=== PATIENT | female | born 1940 | race Caucasian/White ===

== ENCOUNTER 2016-10-01 14:45 | Emergency (ER) | payer MEDICARE, BC ==
[2016-10-01 15:11] VITALS: BP 126/61; PULSE 66; RESP 16; TEMP 97.6
[2016-10-01] MEDS ORDERED: HYDROcodone/APAP 7.5-325MG 1 EACH TAB PO ONE (16:02)
--- NOTE | 2016-10-01 16:17 | XR ---
EXAMINATION TYPE: XR wrist limited LT DATE OF EXAM: 10/01/2016 CLINICAL HISTORY: pain TECHNIQUE: Frontal, lateral images of the left wrist are obtained. COMPARISON: None. FINDINGS: Impacted and angulated distal radial fracture is identified. No definite intra-articular ex tension is seen. There is also fracture involving the diametaphyseal region of the ulna as well as th e ulnar styloid process. No additional fractures are seen with certainty. Soft tissue deformity and e stacey identified. IMPRESSION: Distal radial and ulnar fractures.
--- NOTE | 2016-10-01 16:27 | ED ---
Fall HPI - General Chief Complaint: Fall Stated Complaint: Fall Time Seen by Provider: 10/01/16 16:00 Source: patient Mode of arrival: ambulatory - Related Data Previous Rx's Medication Instructions Recorded Hydrocodone/Acetaminophen [[place] 1 tab PO Q6HR PRN #20 tab 10/01/16 5-325] Review of Systems ROS Statement: Those systems with pertinent positive or pertinent negative responses have been documented in the HPI. ROS Other: All systems not noted in ROS Statement are negative. Past Medical History Past Medical History: Seizure Disorder History of Any Multi-Drug Resistant Organisms: None Reported Additional Past Surgical History / Comment(s): endarctectomy Smoking Status: Current every day smoker Past Alcohol Use History: Occasional Past Drug Use History: None Reported General Exam Limitations: no limitations Course Vital Signs 10/01/16 15:07 Temperature 97.6 F Pulse Rate 66 Respiratory 16 Rate Blood Pressure 126/61 O2 Sat by Pulse 97 Oximetry Disposition Clinical Impression: Fall, Wrist fracture, left Disposition: HOME SELF-CARE Condition: Stable Instructions: Wrist Fracture in Adults (ED) Additional Instructions: Please return to the Emergency Department if symptoms worsen or any other concerns. Prescriptions: Hydrocodone/Acetaminophen [[place] 5-325] 1 tab PO Q6HR PRN #20 tab PRN Reason: Pain Referrals: Mika Phillips DO [Primary Care Provider] - 1-2 days Leeroy Patel MD [STAFF PHYSICIAN] - 1-2 days Time of Disposition: 16:27
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
== END 2016-10-01 16:39 | disposition home or self-care (01) ==
LOC: EC 14:45
DX: S52.502A Unspecified fracture of the lower end of left radius, initial encounter for closed fracture (principal); S52.202A Unspecified fracture of shaft of left ulna, initial encounter for closed fracture; F17.200 Nicotine dependence, unspecified, uncomplicated; W19.XXXA Unspecified fall, initial encounter; Y93.89 Activity, other specified
CPT/HCPCS: 29125; 99284

== ENCOUNTER → 2017-12-15 | Outpatient (CLI) | payer MEDICARE ==
--- NOTE | 2017-12-15 15:02 | CT ---
EXAMINATION TYPE: CT chest w con DATE OF EXAM: 12/15/2017 COMPARISON: HISTORY: Pulmonary fibrosis CT DLP: 403 mGycm Automated exposure control for dose reduction was used. CONTRAST: CT scan of the chest is performed with IV Contrast, patient injected with 100 ml mL of Isovue 300. FINDINGS: LUNGS: The lungs are grossly clear, there is no concerning parenchymal mass or nodule identified. T here is no pleural effusion or pneumothorax seen. The tracheobronchial tree is patent. MEDIASTINUM: There are no greater than 1 cm hilar or mediastinal lymph nodes. No pericardial effusi on is seen. Atheromatous and ectatic change of the thoracic aorta without aneurysm at this time. The heart is not enlarged. UPPER ABDOMEN: Moderate fixed hiatal hernia. Debris within the gallbladder lumen with gallbladder wal l thickening. OTHER: No additional significant abnormality is seen. IMPRESSION: 1. No evidence of pulmonary fibrosis. 2. Moderate fixed hiatal hernia. 3.Debris within the gallbladder lumen with gallbladder wall thickening.
== END | disposition home or self-care (01) ==
LOC: RADCTMAIN 12:25
PROVIDERS: ATTEND Internal Medicine Rheumatology
DX: J84.10 Pulmonary fibrosis, unspecified (principal); Z87.891 Personal history of nicotine dependence
CPT/HCPCS: 82565; 84520; 71260; 36415; Q9967

== ENCOUNTER 2018-08-27 14:15 | Emergency (ER) | payer MEDICARE ==
[2018-08-27 14:28] VITALS: RESP 18
--- NOTE | 2018-08-27 14:55 | ED ---
Fall HPI - General Chief Complaint: Fall Stated Complaint: rt shoulder pain Time Seen by Provider: 08/27/18 14:33 Source: patient Mode of arrival: wheelchair - History of Present Illness Initial Comments: This is a 70-year-old female with known seizure history. Patient woke up with injury to right shoulder pain, bruising of her face. Patient unsure of injury Y happen. She does not remember having seizure but again does have history of seizures. No blood thinners. MD Complaint: fall, other (seizure) -: unknown Fall From: out of bed When Fall Occurred: unsure Fall Witnessed: no Place Fall Occurred: home Loss of Consciousness: unsure Prolonged Down Time?: unclear Symptoms Prior to Fall: none Location: head Location - Extremities: Right: Shoulder Severity: moderate Severity scale (1-10): 5 Quality: aching Context: history of frequent falls, seizure Associated Symptoms: headache - Related Data Home Medications Medication Instructions Recorded Confirmed Aspirin EC [Ecotrin Low Dose] 81 mg PO HS 08/27/18 08/27/18 Atorvastatin [Lipitor] 80 mg PO HS 08/27/18 08/27/18 Cholecalciferol [Vitamin D3] 1,000 unit PO DAILY 08/27/18 08/27/18 Citalopram Hydrobromide [CeleXA] 20 mg PO DAILY 08/27/18 08/27/18 Folic Acid 0.8 mg PO DAILY 08/27/18 08/27/18 Furosemide [Lasix] 20 mg PO DAILY 08/27/18 08/27/18 Levothyroxine Sodium [Synthroid] 125 mcg PO DAILY 08/27/18 08/27/18 Lisinopril [Zestril] 12.5 mg PO [place] 08/27/18 08/27/18 Methotrexate Sodium [Methotrexate] 2.5 mg PO DAILY 08/27/18 08/27/18 Omeprazole 20 mg PO DAILY 08/27/18 08/27/18 levETIRAcetam [Keppra] 750 mg PO BID 08/27/18 08/27/18 Allergies Allergy/AdvReac Type Severity Reaction Status Date / Time cephalexin [From Keflex] Allergy Itching Verified 08/27/18 15:49 Review of Systems ROS Statement: Those systems with pertinent positive or pertinent negative responses have been documented in the HPI. ROS Other: All systems not noted in ROS Statement are negative. Past Medical History Past Medical History: Rheumatoid Arthritis (RA), Seizure Disorder History of Any Multi-Drug Resistant Organisms: None Reported Additional Past Surgical History / Comment(s): endarctectomy Past Psychological History: Depression Smoking Status: Current every day smoker Past Alcohol Use History: Occasional Past Drug Use History: None Reported General Exam Limitations: no limitations General appearance: alert, in no apparent distress Head exam: Present: atraumatic, normocephalic, normal inspection Eye exam: Present: normal appearance, PERRL, EOMI. Absent: scleral icterus, conjunctival injection, periorbital swelling ENT exam: Present: normal exam, mucous membranes moist Neck exam: Present: normal inspection. Absent: tenderness, meningismus, lymphadenopathy Respiratory exam: Present: normal lung sounds bilaterally. Absent: respiratory distress, wheezes, rales, rhonchi, stridor Cardiovascular Exam: Present: regular rate, normal rhythm, normal heart sounds. Absent: systolic murmur, diastolic murmur, rubs, gallop, clicks GI/Abdominal exam: Present: soft, normal bowel sounds. Absent: distended, tenderness, guarding, rebound, rigid Extremities exam: Present: normal inspection, full ROM, normal capillary refill. Absent: tenderness, pedal edema, joint swelling, calf tenderness Back exam: Present: normal inspection Neurological exam: Present: alert, oriented X3, CN II-XII intact Psychiatric exam: Present: normal affect, normal mood Skin exam: Present: warm, dry, intact, normal color. Absent: rash Course Vital Signs 08/27/18 08/27/18 08/27/18 14:24 16:36 17:06 Temperature 97.3 F L Pulse Rate 81 69 71 Respiratory 18 18 18 Rate Blood Pressure 95/59 125/72 115/95 O2 Sat by Pulse 99 99 99 Oximetry 08/27/18 17:59 Temperature 97.8 F Pulse Rate 71 Respiratory 18 Rate Blood Pressure 115/95 O2 Sat by Pulse 99 Oximetry - Reevaluation(s) Reevaluation #1: Medical record reviewed No seizure activity here Spoke with family patient at length regarding findings, Procedures - Orthopedic Splinting/Casting Injury #1 Side: right Upper Extremity Injury Location: clavicle Upper Extremity Immobilizer: sling/shoulder immobilizer Medical Decision Making - Medical Decision Making 70 female the ER for evaluation presents today for evaluation of seizure resulting clavicle fracture facial hematoma some conjunctival hemorrhage. Patient put in sling and can be discharged home - Radiology Data Radiology results: report reviewed (CT brain C-spine negative for acute disease, chest x-ray does show clavicle fracture x-ray pelvis is negative), image reviewed Disposition Clinical Impression: Fall, Right clavicle fracture, Traumatic subconjunctival hemorrhage of both eyes Disposition: HOME SELF-CARE Condition: Good Instructions (If sedation given, give patient instructions): Clavicle Fracture (ED), Subconjunctival Hemorrhage (ED), Fall Prevention for Older Adults (ED) Is patient prescribed a controlled substance at d/c from ED?: No Referrals: Negro Lamar DO [Doctor of Osteopathic Medicine] - 1-2 days
--- NOTE | 2018-08-27 15:23 | CT ---
EXAMINATION TYPE: CT facial bones wo con DATE OF EXAM: 08/27/2018 COMPARISON: None HISTORY: fall, confusion CT DLP: combined DLP 1076.5 mGycm Automated exposure control for dose reduction was used. TECHNIQUE: CT scan of the sinuses is performed without contrast, axial images are obtained, coronal r eformatted images are also reviewed. FINDINGS: The orbital margins are intact. There is no evidence of a blowout fracture. Maxilla appears intact. The mandibular ring appears intact. Temporomandibular joints appear normal. Zygomatic arches appear normal. There is normal aeration of the paranasal sinuses. Nasal bone appears intact. IMPRESSION: Negative CT scan of the facial bones. No fracture.
--- NOTE | 2018-08-27 15:26 | CT ---
EXAMINATION TYPE: CT brain caridad arcos DATE OF EXAM: 08/27/2018 COMPARISON: CT brain 12/03/2006 HISTORY: fall, confusion CT DLP: combined DLP 1076.5 mGycm Automated exposure control for dose reduction was used. TECHNIQUE: CT scan of the head and cervical spine are performed without contrast. FINDINGS: There is cerebral cortical atrophy. There is no mass effect nor midline shift. There is n o sign of intracranial hemorrhage. Calvarium is intact. The cervical vertebra show some straightening. There is degenerative disc spaces from C4 to C7 with s purring of the endplates. Facet joints are intact. There is multilevel hypertrophic facet arthropathy . The skull base is intact. IMPRESSION: Cerebral atrophy. No acute intracranial abnormality. Spondylotic changes in the cervical spine. No fracture.
--- NOTE | 2018-08-27 15:47 | XR ---
EXAMINATION TYPE: XR shoulder complete RT DATE OF EXAM: 08/27/2018 COMPARISON: NONE HISTORY: Shoulder pain TECHNIQUE: 3 views FINDINGS: There is a 100% displaced fracture lateral end of the right clavicle. There is no dislocati on. There is spurring at the AC joint. Proximal humerus is intact. IMPRESSION: Acute displaced fracture lateral end of the clavicle.
--- NOTE | 2018-08-27 15:49 | XR ---
EXAMINATION TYPE: XR pelvis AP view DATE OF EXAM: 08/27/2018 COMPARISON: NONE HISTORY: Pain TECHNIQUE: Single view FINDINGS: Pelvic ring is intact. Proximal femurs are intact. There is acetabular spurring. Sacroiliac joints appear intact. There is vascular calcification. IMPRESSION: No acute abnormality of the pelvis. bilateral hip joint osteoarthritis.
--- NOTE | 2018-08-27 15:50 | XR ---
EXAMINATION TYPE: XR chest 1V DATE OF EXAM: 08/27/2018 COMPARISON: 06/19/2013 HISTORY: Chest pain TECHNIQUE: Single frontal view of the chest is obtained. FINDINGS: Heart and mediastinum are normal. Lungs are clear. Diaphragm is normal. Thoracic aorta is atheromatous. IMPRESSION: No active cardiopulmonary disease. Right clavicle fracture noted. Heart and lungs unchan ged.
[2018-08-27 17:07] VITALS: BP 115/95; PULSE 71
[2018-08-27] MEDS ORDERED: ACETAMINOPHEN TAB 500 MG TAB PO STA (17:09)
[2018-08-27 18:00] VITALS: TEMP 97.8
== END 2018-08-27 18:02 | disposition home or self-care (01) ==
LOC: EC 14:15
DX: S42.001A Fracture of unspecified part of right clavicle, initial encounter for closed fracture (principal); H11.33 Conjunctival hemorrhage, bilateral; R51 Headache; G40.909 Epilepsy, unspecified, not intractable, without status epilepticus; M06.9 Rheumatoid arthritis, unspecified; F32.9 Major depressive disorder, single episode, unspecified; F17.200 Nicotine dependence, unspecified, uncomplicated; Z79.82 Long term (current) use of aspirin; Z79.890 Hormone replacement therapy; Z79.899 Other long term (current) drug therapy; Z88.1 Allergy status to other antibiotic agents; W06.XXXA Fall from bed, initial encounter; Y92.009 Unspecified place in unspecified non-institutional (private) residence as the place of occurrence of the external cause
CPT/HCPCS: 72170; 73030; 71045; 72125; 70486; 70450; 99284; L3670

== ENCOUNTER 2021-01-23 16:53 | Inpatient (IN) | payer MEDICARE ==
[2021-01-23 17:35] LABS: Basophils % (A) 0 %; Eosinophils # (A) 0.1 k/uL (0-0.7); Eosinophils % (A) 1 %; HCT 40.1 % (34.0-46.0); HGB 12.8 gm/dL (11.4-16.0); Lymphocytes # (A) 1.6 k/uL (1.0-4.8); Lymphocytes % (A) 16 %; MCH 28.3 pg (25.0-35.0); MCV 88.2 fL (80.0-100.0); Mean Platelet Volume 7.9; Monocytes # (A) 0.8 k/uL (0-1.0); Monocytes % (A) 8 %; Neutrophils # (A) 7.3 k/uL (1.3-7.7); Neutrophils % (A) 73 %; Platelet Count 253 k/uL (150-450); RBC 4.54 m/uL (3.80-5.40); RDW 15.2 % (11.5-15.5)
[2021-01-23 17:42] LABS: INR 0.9 (<1.2); Partial Thromboplastin Time 30.7 sec (22.0-30.0); Prothrombin Time 10.2 sec (9.0-12.0)
--- NOTE | 2021-01-23 17:46 | ED ---
Chest Pain HPI - General Chief Complaint: Chest Pain Stated Complaint: fall Source: EMS Mode of arrival: EMS Limitations: no limitations - History of Present Illness Initial Comments: 80-year-old female presents emergency room as a transfer from [facility]. She states that she woke this morning to find that she had blood on her pillow. She was unsure if she followed bed and hit her head. She states that there is no blood on the ground just located on her pillow. She denies having any recollection of the events. She does have a seizure history however states she has not had a seizure in a very long time. She went into [facility]. They did do an evaluation. Patient had a CT of her brain and cervical spine. She also received a cardiac workup. They found that the patient's first troponin was 0.06. Patient had no chest pain or shortness of breath. They then repeated a troponin and it was noted to go up to 0.6. They did heparinize the patient's and recommended that she be transferred to our facility for cardiac evaluation. Patient arrives asymptomatic. They did put Steri-Strips on her forehead laceration she did start to bleed after they started the heparin. A pressure dressing was then placed. Patient complains of a skin tear to her left hand. She continues to deny any chest pain or shortness of breath. Denies previous history of cardiac disease. Has seen a noc analyst out of [place] previously. Denies fevers, chills or cough. No other alleviating, precipitating or modifying factors - Related Data Home Medications Medication Instructions Recorded Confirmed levETIRAcetam [Keppra] 750 mg PO BID 08/27/18 01/23/21 lisinopriL [Zestril] 2.5 mg PO DAILY 08/27/18 01/23/21 Lactobacillus Acidophilus 1 cap PO DAILY 01/23/21 01/23/21 [Acidophilus Probiotic] Levothyroxine Sodium [Synthroid] 137 mcg PO DAILY 01/23/21 01/23/21 Omeprazole 40 mg PO DAILY 01/23/21 01/23/21 amLODIPine [Norvasc] 2.5 mg PO DAILY 01/23/21 01/23/21 Allergies Allergy/AdvReac Type Severity Reaction Status Date / Time cephalexin [From Keflex] Allergy Itching Verified 01/23/21 19:50 Review of Systems ROS Statement: Those systems with pertinent positive or pertinent negative responses have been documented in the HPI. ROS Other: All systems not noted in ROS Statement are negative. EKG Findings - EKG Comments: EKG Findings:: EKG demonstrates normal sinus rhythm with a ventricular rate of 67. There are normal 136. QRS 72. QTC of 431. No acute ST segment elevations or depressions Past Medical History Past Medical History: Rheumatoid Arthritis (RA), Seizure Disorder History of Any Multi-Drug Resistant Organisms: None Reported Additional Past Surgical History / Comment(s): endarctectomy Past Psychological History: Depression Smoking Status: Current every day smoker Past Alcohol Use History: Occasional Past Drug Use History: None Reported General Exam Limitations: no limitations Course Vital Signs 01/23/21 01/23/21 01/23/21 17:14 17:27 22:14 Temperature 97.4 F L Pulse Rate 64 64 Pulse Rate [ 74 Sr. Media Manager ] Respiratory 16 16 Rate Blood Pressure 148/67 85/57 Blood Pressure [Right Arm] O2 Sat by Pulse 96 98 Oximetry 01/23/21 01/23/21 01/23/21 22:15 22:20 22:42 Temperature 98.3 F Pulse Rate Pulse Rate [ 70 Sr. Media Manager ] Respiratory 18 Rate Blood Pressure 82/36 135/54 Blood Pressure 137/72 [Right Arm] O2 Sat by Pulse 97 Oximetry - Reevaluation(s) Reevaluation #1: Spoke with Dr. Tiwari - aware of pt - recommends heparin 01/23/21 1855 Chest Pain MDM - [facility] Upon arrival patient was placed into room 8. A thorough history and physical exam was performed. I did repeat the patient's laboratory studies. She did not have a chest x-ray at the outside facility and therefore I did get an x-ray of her chest. Laboratory studies are reviewed. Troponin continues to increase and is now 0.73. I did call and talk to Dr. Tiwari. Patient will remain on the heparin drip. I did close the patient's facial laceration with 5, 6-0 nonabsorbable sutures. I called and spoke with Dr. Butler who agreed to admit the patient. Patient is currently awaiting a bed on the floor Disposition Clinical Impression: NSTEMI (non-ST elevated myocardial infarction), Concussion, Scalp laceration Disposition: ADMITTED IP TO THIS HOSP Condition: Stable Is patient prescribed a controlled substance at d/c from ED?: No Decision to Admit Reason: Admit from EC Decision Date: 01/23/21 Decision Time: 20:37
[2021-01-23 17:48] LABS: ALT 51 U/L (4-34); AST 83 U/L (14-36); African American GFR (CKD) >90 (>60 ml/min/1.73 sqM); Albumin 3.5 g/dL (3.5-5.0); Alkaline Phosphatase 144 U/L (38-126); Anion Gap 7 mmol/L; Blood Urea Nitrogen 16 mg/dL (7-17); Calcium 9.5 mg/dL (8.4-10.2); Carbon Dioxide 22 mmol/L (22-30); Chloride 107 mmol/L (98-107); Glucose 100 mg/dL (74-99); Magnesium 2.1 mg/dL (1.6-2.3); Non-African American GFR(CKD) 82 (>60 ml/min/1.73 sqM); Potassium 4.2 mmol/L (3.5-5.1); Sodium 136 mmol/L (137-145); Total Bilirubin 0.6 mg/dL (0.2-1.3); Total Protein 7.2 g/dL (6.3-8.2)
[2021-01-23] MEDS ORDERED: HEPARIN SODIUM 1,000 UN/ML (10ML VL) IV PRN (18:01)
[2021-01-23] MEDS ORDERED: LIDOCAINE 1%-EPI 1:100,000 20 ML VIAL SQ STA (18:02)
[2021-01-23] MEDS ORDERED: HEPARIN SOD,PORK IN 0.45% NACL 25,000 UNIT in 0.45% NACL 1 250ML.BAG IV SCH (18:15)
--- NOTE | 2021-01-23 19:31 | XR ---
EXAMINATION TYPE: XR chest 2V DATE OF EXAM: 01/23/2021 COMPARISON: CT chest 12/15/2017 HISTORY: Chest pain TECHNIQUE: Frontal and lateral views of the chest are obtained. FINDINGS: There is no focal air space opacity, pleural effusion, or pneumothorax seen. The cardiac silhouette size is within normal limits. Anterior compression deformity of T7, T12 and L1 similar to prior CT. IMPRESSION: No acute cardiopulmonary process.
[2021-01-23] MEDS ORDERED: NALOXONE 0.4 MG/ML 1 ML VIAL IV PRN (20:37)
[2021-01-23] MEDS ORDERED: SODIUM CHLORIDE 0.9% 1,000 ML IV ONE ×2 (22:12→23:51)
[2021-01-23] MEDS ORDERED: ACETAMINOPHEN TAB 325 MG TAB PO PRN (23:54)
--- NOTE | 2021-01-24 00:11 | P.HPIM ---
History of Present Illness H&P Date: 01/23/21 Chief Complaint: head injury 80 year old female with controlled hYpertension , remote history of epilepsy on keppra (last seizure 8 years ago), hypothyroid patient woke up today , found her face covered with blood , realized later she has forehead laceration , and a bruise over her right knee, without any recollection of how this happened. she woke up in her bed, and thinks she went to be last night feelng normal she lives alone , and family check s on her regularly , last time they spoke last evening, and this morning they found about her incident. patient denies any history of falling, but vaguely reports occasional pre syncope with palpitations. her last breakthrough seizure was 8 years ago , and she believes she is compliant with her meds, denies any cardiac history denies fever, chills, focal neuro deficits, nausea , vomting , SOB, or chest pain she went to different facility [facility], where she had CT of the head, and was negative for acute pathology . vitals were stable, LA was elevated then corrected. CXR negative for acute pathology , EKG no acute ST changes. trops were normal initially then became slightly elevated, transferred to our facility for cardiology eval she currently feeling fine, answering questions appropriately , family at bedside. she is not on blood thinner, and denies frequent falling. laceeration of her forehead was sutured in our ED. Review of Systems Pertinent positives as noted in HPI. All other systems were reviewed and are negative Past Medical History Past Medical History: GERD/Reflux, Hypertension, Rheumatoid Arthritis (RA), Seizure Disorder, Thyroid Disorder History of Any Multi-Drug Resistant Organisms: None Reported Additional Past Surgical History / Comment(s): endarctectomy Past Anesthesia/Blood Transfusion Reactions: No Reported Reaction Past Psychological History: Depression Smoking Status: Current every day smoker Past Alcohol Use History: Occasional Past Drug Use History: None Reported - Past Family History Family Family Medical History: Coronary Artery Disease (CAD) Medications and Allergies Home Medications Medication Instructions Recorded Confirmed Type levETIRAcetam [Keppra] 750 mg PO BID 08/27/18 01/23/21 History lisinopriL [Zestril] 2.5 mg PO DAILY 08/27/18 01/23/21 History Lactobacillus Acidophilus 1 cap PO DAILY 01/23/21 01/23/21 History [Acidophilus Probiotic] Levothyroxine Sodium [Synthroid] 137 mcg PO DAILY 01/23/21 01/23/21 History Omeprazole 40 mg PO DAILY 01/23/21 01/23/21 History amLODIPine [Norvasc] 2.5 mg PO DAILY 01/23/21 01/23/21 History Allergies Allergy/AdvReac Type Severity Reaction Status Date / Time cephalexin [From Keflex] Allergy Itching Verified 01/23/21 19:50 Physical Exam Vitals: Vital Signs Temp Pulse Pulse Resp BP BP Pulse Ox 01/23/21 23:50 98.1 F 62 18 125/65 97 01/23/21 22:42 98.3 F 70 18 137/72 97 01/23/21 22:20 135/54 01/23/21 22:15 82/36 01/23/21 22:14 64 16 85/57 98 01/23/21 17:27 74 01/23/21 17:14 97.4 F L 64 16 148/67 96 Intake and Output 01/23/21 01/23/21 01/24/21 14:59 22:59 06:59 Intake Total 35.778 Balance 35.778 Intake: Intake, IV Titration 35.778 Amount Heparin Sod,Pork in 0.45% 35.778 NaCl 25,000 unit In 0.45 % NaCl 1 250ml.bag @ 12 UNITS/KG/HR 9.253 mls/hr IV .Q24H [facility] Rx#: [id number] Other: Weight 77.111 kg Constitutional: No acute distress, conversant, pleasant Eyes: Anicteric sclerae, moist conjunctiva, Pupils equal round reactive to light ENMT: NC/patient has dry blood all over her hair, 1-1/2 inch laceration of the forehead status post suturing with some bruising surrounding it Oropharynx clear, no erythema, or exudates, patient missing most of her teeth Neck: Supple, FROM, no masses, or JVD No carotid bruits No thyromegaly Lungs: Clear to auscultation Clear to percussion Normal respiratory effort, no accessory muscle use Cardiovascular: Heart regular in rate and rhythm, Slight systolic murmurs, no gallops, or rubs No peripheral edema Abdominal: Soft Nontender, no guarding, rebound or rigidity Abdomen moving with respiration Normoactive bowel sounds No hepatomegaly, No splenomegaly No palpable mass No abdominal wall hernia noted Skin: Erythema and bruising over the right knee Tender to palpation , Normal temperature, tone, texture, turgor Laceration over the dorsum of the left hand currently covered with surgical dressing looks dry and intact and clean No induration No subcutaneous nodules Extremities: Range of motion is intact with the right knee No digital cyanosis No clubbing Pedal pulses intact and symmetrical Radial pulses intact and symmetrical No calf tenderness Psychiatric: Alert and oriented to person, place and time Appropriate affect fair judgement Neuro Muscles Strength 4/5 in all 4 extremities Sensation to light touch grossly present throughout Cranial nerves II-XII grossly intact No focal sensory deficits Lymphatics: no palpable cervical or supraclavicular , or inguinal lymph nodes Results CBC & Chem 7: 01/23/21 17:15 01/23/21 17:15 Labs: Abnormal Lab Results - Last 24 Hours (Table) 01/23/21 01/23/21 01/23/21 Range/Units 17:15 17:15 17:15 APTT 30.7 H (22.0-30.0) sec Sodium 136 L (137-145) mmol/L Glucose 100 H (74-99) mg/dL Plasma Lactic Acid Rosas (0.7-2.0) mmol/L AST 83 H (14-36) U/L ALT 51 H (4-34) U/L Alkaline Phosphatase 144 H (38-126) U/L Troponin I 0.723 H* (0.000-0.034) ng/mL 01/23/21 Range/Units 23:01 APTT (22.0-30.0) sec Sodium (137-145) mmol/L Glucose (74-99) mg/dL Plasma Lactic Acid Rosas 2.7 H* (0.7-2.0) mmol/L AST (14-36) U/L ALT (4-34) U/L Alkaline Phosphatase (38-126) U/L Troponin I (0.000-0.034) ng/mL Thrombosis Risk Factor Assmnt - Choose All That Apply Any of the Below Risk Factors Present?: No Other Risk Factors: Yes Each Risk Factor Represents 3 Points: Age 75 years or older Other congenital or acquired thrombophilia - If yes, enter type in comment: No Thrombosis Risk Factor Assessment Total Risk Factor Score: 3 Thrombosis Risk Factor Assessment Level: Moderate Risk Assessment and Plan Assessment: NSTEMI Trend troponins Aspirin and statin Heparin drip per cardiology recommendations Cardiology consult Trend troponins Cardiac monitoring Pain control Head injury possible fall at home versus syncope Cardiac monitoring monitor for any arrhythmia Neurochecks PT eval History of epilepsy last seizure was 8 years ago, check Keppra level, resume Keppra, seizure precautions, check EEG Local wound care forehead laceration Hypertension Resume blood pressure medications Mild lactic acidosis IV fluid hydration with normal saline Hypothyroid resume levothyroxine GERD resume PPI Patient is full code This patient at length of stay more than 2 midnights Patient lives alone await PT eval for recommendations regarding discharge
[2021-01-24] MEDS: ATORVASTATIN 40 MG TAB PO SCH ×2 (00:12→20:38)
[2021-01-24] MEDS: SODIUM CHLORIDE 0.9% 1,000 ML IV SCH ×2 (00:14→15:17)
[2021-01-24] MEDS: PANTOPRAZOLE 40 MG TABLET PO SCH (06:09)
[2021-01-24] MEDS: LEVOTHYROXINE 137 MCG TAB PO SCH (06:10)
[2021-01-24 09:01] LABS: Basophils % (A) 0 %; Eosinophils # (A) 0.2 k/uL (0-0.7); Eosinophils % (A) 2 %; HCT 32.9 % (34.0-46.0); HGB 10.9 gm/dL (11.4-16.0); Lymphocytes # (A) 1.7 k/uL (1.0-4.8); Lymphocytes % (A) 24 %; MCH 28.9 pg (25.0-35.0); MCHC 33.3 g/dL (31.0-37.0); MCV 86.8 fL (80.0-100.0); Mean Platelet Volume 7.7; Monocytes # (A) 0.6 k/uL (0-1.0); Monocytes % (A) 9 %; Neutrophils # (A) 4.3 k/uL (1.3-7.7); Neutrophils % (A) 62 %; Platelet Count 248 k/uL (150-450); RBC 3.79 m/uL (3.80-5.40); RDW 15.6 % (11.5-15.5)
[2021-01-24 09:12] LABS: Partial Thromboplastin Time 79.8 sec (22.0-30.0); Prothrombin Time 10.8 sec (9.0-12.0)
[2021-01-24 09:33] LABS: Albumin 2.9 g/dL (3.5-5.0); Calcium 8.6 mg/dL (8.4-10.2); Total Bilirubin 0.5 mg/dL (0.2-1.3); Total Protein 6.1 g/dL (6.3-8.2)
[2021-01-24] MEDS: amLODIPine 2.5 MG TAB PO SCH (10:03)
--- NOTE | 2021-01-24 10:18 | P.CRDCN ---
History of Present Illness Consult date: 01/24/21 Consult reason: non-Q-wave MA History of present illness: History of present illness: This is an 80-year-old female with past medical history of hypertension, seizure disorder- last seizure 8 years ago, hypothyroidism, Rheumatoid arthritis history of left-sided carotid endarterectomy. Patient states she has seen a oxyacetylene welder in [place] and recently underwent stress testing at that time which was unremarkable. She is not sure what other testing has been done. Patient apparently was sleeping and woke up to find blood on her face and realized she had a laceration on her forehead and bruise on her right knee but did not recall any incident. She initially went to [facility] and underwent CAT scan of the brain and cervical spine which apparently was unremarkable. She had a troponin that came back at 0.06. Patient denies having any chest pain, shortness of breath, lightheadedness or dizziness. Patient was transferred to [facility] emergency center for evaluation. Troponins were found to be 0.773, 1.030, 1.020. EKG normal sinus rhythm with no acute ST changes. Afebrile, heart rate 60s and 70s, blood pr essure 148/76, pulse ox 96% on room air Other lab work of note, CBC unremarkable. Sodium 136. Lactic acid 2.7 with repeat of 0.9. Liver function tests were elevated at AST 83, ALT 51, alkaline phosphatase 144. BUN 16 and creatinine 0.7. Coronavirus PCR not detected. Chest x-ray showed no acute cardiopulmonary process. Patient was started on heparin drip, Lipitor 40 mg daily and home medications were resumed, echocardiogram and EEG were ordered. Review Of Systems: Constitutional: No fever, no chills. No weakness, fatigue or lethargy. EENT: No headache. No dizziness. Lungs: No shortness of breath, cough, no sputum production. No wheezing. Cardiovascular: No chest pain, no lower extremity edema. No palpitations. No paroxysmal nocturnal dyspnea. No orthopnea. No lightheadedness or dizziness. No syncopal episodes. Abdominal: No abdominal pain. No nausea, vomiting. No diarrhea. No constipation. No bloody or tarry stools. No loss of appetite. Genitourinary: No dysuria.. No urinary retention. Musculoskeletal: No myalgias. No muscle weakness, no gait dysfunction, no nu quent falls. No back pain. No neck pain. Integumentary: Reports forehead wound, no lesions. No rash or pruritus. No unusual bruising. Neurologic: No aphasia. No facial droop. No change in mentation. No head injury. No headache. No paralysis. No paresthesia. Endocrine: No abnormal blood sugars. Physical examination: Gen: This is an 80-year-old female. She is resting in bed and appears to be in no acute distress. VS: Afebrile, heart rate 73, blood pressure 136/72, pulse ox 95% on room air. HEENT: Head is atraumatic, normocephalic. Pupils equal, round. Sclerae is anicteric. Cap on her head to try to soak off dried blood. NECK: Supple. No JVD. No lymphadenopathy. No thyromegaly. LUNGS: Clear to auscultation. No wheezes or rhonchi. No intercostal retractions. HEART: Regular rate and rhythm. Systolic murmur. ABDOMEN: Soft. Bowel sounds are present. No masses. No tenderness. EXTREMITIES: No pedal edema. No calf tenderness. Dorsalis pedis +2 bilaterally. NEUROLOGICAL: Patient is awake, alert and oriented x3. Cranial nerves 2 through 12 are grossly intact. Assessment: Possible non-ST elevated myocardial infarction Scalp laceration Hypertension Seizure disorder history Hypothyroidism Rheumatoid arthritis History of left-sided carotid endarterectomy Plan: Discontinue heparin drip Continue Lipitor, lisinopril and amlodipine Obtain 2-D echocardiogram and Doppler study to assess cardiac structure and function Further recommendations to follow based upon clinical course Thank you kindly for this consultation. Nurse practitioner note has been reviewed, I agree with documented findings and plan of care. Patient was seen and examined. Past Medical History Past Medical History: GERD/Reflux, Hypertension, Rheumatoid Arthritis (RA), Seizure Disorder, Thyroid Disorder History of Any Multi-Drug Resistant Organisms: None Reported Additional Past Surgical History / Comment(s): endarctectomy Past Anesthesia/Blood Transfusion Reactions: No Reported Reaction Past Psychological History: Depression Smoking Status: Current every day smoker Past Alcohol Use History: Occasional Past Drug Use History: None Reported - Past Family History Family Family Medical History: Coronary Artery Disease (CAD) Medications and Allergies Home Medications Medication Instructions Recorded Confirmed Type levETIRAcetam [Keppra] 750 mg PO BID 08/27/18 01/23/21 History lisinopriL [Zestril] 2.5 mg PO DAILY 08/27/18 01/23/21 History Lactobacillus Acidophilus 1 cap PO DAILY 01/23/21 01/23/21 History [Acidophilus Probiotic] Levothyroxine Sodium [Synthroid] 137 mcg PO DAILY 01/23/21 01/23/21 History Omeprazole 40 mg PO DAILY 01/23/21 01/23/21 History amLODIPine [Norvasc] 2.5 mg PO DAILY 01/23/21 01/23/21 History Allergies Allergy/AdvReac Type Severity Reaction Status Date / Time cephalexin [From Keflex] Allergy Itching Verified 01/23/21 19:50 Physical Exam Vitals: Vital Signs Temp Pulse Pulse Resp BP BP Pulse Ox 01/24/21 03:46 98.6 F 73 18 136/72 95 01/24/21 02:00 62 18 01/23/21 23:50 98.1 F 62 18 125/65 97 01/23/21 22:42 98.3 F 70 18 137/72 97 01/23/21 22:30 62 18 01/23/21 22:20 135/54 01/23/21 22:15 82/36 01/23/21 22:14 64 16 85/57 98 01/23/21 17:27 74 01/23/21 17:14 97.4 F L 64 16 148/67 96 Intake and Output 01/23/21 01/24/21 01/24/21 22:59 06:59 14:59 Intake Total 35.778 375 Balance 35.778 375 Intake: Intake, IV Titration 35.778 375 Amount Heparin Sod,Pork in 0.45% 35.778 NaCl 25,000 unit In 0.45 % NaCl 1 250ml.bag @ 12 UNITS/KG/HR 9.253 mls/hr IV .Q24H [facility] Rx#: [id number] Sodium Chloride 0.9% 1, 375 000 ml @ 75 mls/hr IV . [id number] [facility] Rx#:[id number] Other: Voiding Method Toilet Toilet # Voids 1 Weight 77.111 kg 71.4 kg Results 01/24/21 08:13 01/24/21 08:13 Cardiac Enzymes 01/23/21 01/23/21 01/23/21 Range/Units 17:15 17:15 23:01 AST 83 H (14-36) U/L Troponin I 0.723 H* 1.030 H* (0.000-0.034) ng/mL 01/24/21 Range/Units 00:21 AST (14-36) U/L Troponin I 1.020 H* (0.000-0.034) ng/mL Coagulation 01/23/21 01/24/21 Range/Units 17:15 00:21 PT 10.2 (9.0-12.0) sec APTT 30.7 H 62.9 H (22.0-30.0) sec CBC 01/23/21 01/24/21 Range/Units 17:15 08:13 WBC 10.0 7.0 (3.8-10.6) k/uL RBC 4.54 3.79 L (3.80-5.40) m/uL Hgb 12.8 10.9 L (11.4-16.0) gm/dL Hct 40.1 32.9 L (34.0-46.0) % Plt Count 253 248 (150-450) k/uL Comprehensive Metabolic Panel 01/23/21 Range/Units 17:15 Sodium 136 L (137-145) mmol/L Potassium 4.2 (3.5-5.1) mmol/L Chloride 107 (98-107) mmol/L Carbon Dioxide 22 (22-30) mmol/L BUN 16 (7-17) mg/dL Creatinine 0.70 (0.52-1.04) mg/dL Glucose 100 H (74-99) mg/dL Calcium 9.5 (8.4-10.2) mg/dL AST 83 H (14-36) U/L ALT 51 H (4-34) U/L Alkaline Phosphatase 144 H (38-126) U/L Total Protein 7.2 (6.3-8.2) g/dL Albumin 3.5 (3.5-5.0) g/dL Current Medications Generic Name Dose Route Start Last Admin Trade Name Freq PRN Reason Stop Dose Admin Acetaminophen 650 mg 01/23/21 23:54 Acetaminophen Tab 325 Mg Tab PO Q4HR PRN Fever and/ or Pain Amlodipine Besylate 2.5 mg 01/24/21 09:00 Amlodipine 2.5 Mg Tab PO DAILY [facility] Atorvastatin Calcium 40 mg 01/23/21 23:45 01/24/21 00:12 Atorvastatin 40 Mg Tab PO 40 mg HS [facility] Administration Heparin Sodium (Porcine) 0 unit 01/23/21 18:01 01/23/21 18:18 Heparin Sodium 1,000 Un/Ml (10ml Vl) IV 4,000 unit PER PROTOCOL PRN Administration Low PTT Protocol Heparin Sodium/Sodium Chloride 250 mls @ 9.253 mls/hr 01/23/21 18:15 01/23/21 22:11 25,000 unit/ Sodium Chloride IV 15 units/kg/hr .Q24H [facility] 11.567 mls/hr Titration Protocol 12 UNITS/KG/HR Sodium Chloride 1,000 mls @ 75 mls/hr 01/23/21 23:45 01/24/21 00:14 Saline 0.9% IV 75 mls/hr .[id number] [facility] Administration Lactobacillus Acidoph/Bulgaricus 1 each 01/24/21 09:00 Lactobacillus Acidoph & Bulgar 1 Each Packet PO DAILY [facility] Levetiracetam 750 mg 01/23/21 23:30 01/23/21 23:40 Levetiracetam 750 Mg Tab PO 750 mg BID [facility] Administration Levothyroxine Sodium 137 mcg 01/24/21 06:30 01/24/21 06:10 Levothyroxine 137 Mcg Tab PO 137 mcg DAILY@0630 [facility] Administration Lisinopril 2.5 mg 01/24/21 09:00 Lisinopril 2.5 Mg Tab PO DAILY [facility] Naloxone HCl 0.2 mg 01/23/21 20:37 Naloxone 0.4 Mg/Ml 1 Ml Vial IV Q2M PRN Opioid Reversal Pantoprazole Sodium 40 mg 01/24/21 07:30 01/24/21 06:09 Pantoprazole 40 Mg Tablet PO 40 mg [id number] [facility] Administration Intake and Output 01/23/21 01/24/21 01/24/21 22:59 06:59 14:59 Intake Total 35.778 375 Balance 35.778 375 Intake: Intake, IV Titration 35.778 375 Amount Heparin Sod,Pork in 0.45% 35.778 NaCl 25,000 unit In 0.45 % NaCl 1 250ml.bag @ 12 UNITS/KG/HR 9.253 mls/hr IV .Q24H [facility] Rx#: [id number] Sodium Chloride 0.9% 1, 375 000 ml @ 75 mls/hr IV . [id number] [facility] Rx#:[id number] Other: Voiding Method Toilet Toilet # Voids 1 Weight 77.111 kg 71.4 kg 01/24/21 08:13 01/23/21 17:15
--- NOTE | 2021-01-24 14:49 | P.PN ---
Subjective Patient was seen and evaluated by me this morning. She denies any chest pain. No acute events overnight reported by nursing staff. No seizure activity since admission. Objective - Vital Signs Vital signs: Vital Signs Temp 98.0 F 01/24/21 11:55 Pulse 63 01/24/21 14:00 Resp 17 01/24/21 14:00 BP 128/63 01/24/21 11:55 Pulse Ox 94 L 01/24/21 11:55 Intake & Output 01/23/21 01/24/21 01/24/21 18:59 06:59 18:59 Intake Total 410.778 0 Balance 410.778 0 Weight 77.111 kg 71.4 kg Intake: Intake, IV Titration 410.778 Amount Heparin Sod,Pork in 0.45% 35.778 NaCl 25,000 unit In 0.45 % NaCl 1 250ml.bag @ 12 UNITS/KG/HR 9.253 mls/hr IV .Q24H [facility] Rx#: [id number] Sodium Chloride 0.9% 1, 375 000 ml @ 75 mls/hr IV . [id number] [facility] Rx#:[id number] Oral 0 Other: Voiding Method Toilet Toilet # Voids 1 1 - Exam General: The patient is awake and alert, in no distress. Patient has approximately 3 cm laceration on the forehead that was sutured in the emergency room Eye: there is normal conjunctiva bilaterally. Neck: The neck is supple, there is no JVD. Cardiovascular: Normal S1-S2, no S3-S4, no murmurs. Respiratory: Lungs clear to auscultation bilaterally Gastrointestinal: Abdomen is soft, nontender Musculoskeletal: There is no pedal edema. Neurological:. Speech is normal. Skin: Skin is warm and dry - Labs CBC & Chem 7: 01/24/21 08:13 01/24/21 08:13 Labs: Abnormal Lab Results - Last 24 Hours (Table) 01/23/21 01/23/21 01/23/21 Range/Units 17:15 17:15 17:15 RBC (3.80-5.40) m/uL Hgb (11.4-16.0) gm/dL Hct (34.0-46.0) % RDW (11.5-15.5) % APTT 30.7 H (22.0-30.0) sec Sodium 136 L (137-145) mmol/L Chloride (98-107) mmol/L Glucose 100 H (74-99) mg/dL Plasma Lactic Acid Rosas (0.7-2.0) mmol/L AST 83 H (14-36) U/L ALT 51 H (4-34) U/L Alkaline Phosphatase 144 H (38-126) U/L Troponin I 0.723 H* (0.000-0.034) ng/mL Total Protein (6.3-8.2) g/dL Albumin (3.5-5.0) g/dL 01/23/21 01/23/21 01/24/21 Range/Units 23:01 23:01 00:21 RBC (3.80-5.40) m/uL Hgb (11.4-16.0) gm/dL Hct (34.0-46.0) % RDW (11.5-15.5) % APTT (22.0-30.0) sec Sodium (137-145) mmol/L Chloride (98-107) mmol/L Glucose (74-99) mg/dL Plasma Lactic Acid Rosas 2.7 H* (0.7-2.0) mmol/L AST (14-36) U/L ALT (4-34) U/L Alkaline Phosphatase (38-126) U/L Troponin I 1.030 H* 1.020 H* (0.000-0.034) ng/mL Total Protein (6.3-8.2) g/dL Albumin (3.5-5.0) g/dL 01/24/21 01/24/21 01/24/21 Range/Units 00:21 08:13 08:13 RBC 3.79 L (3.80-5.40) m/uL Hgb 10.9 L (11.4-16.0) gm/dL Hct 32.9 L (34.0-46.0) % RDW 15.6 H (11.5-15.5) % APTT 62.9 H (22.0-30.0) sec Sodium 136 L (137-145) mmol/L Chloride 108 H (98-107) mmol/L Glucose 102 H (74-99) mg/dL Plasma Lactic Acid Rosas (0.7-2.0) mmol/L AST 63 H (14-36) U/L ALT 38 H (4-34) U/L Alkaline Phosphatase (38-126) U/L Troponin I (0.000-0.034) ng/mL Total Protein 6.1 L (6.3-8.2) g/dL Albumin 2.9 L (3.5-5.0) g/dL 01/24/21 Range/Units 08:13 RBC (3.80-5.40) m/uL Hgb (11.4-16.0) gm/dL Hct (34.0-46.0) % RDW (11.5-15.5) % APTT 79.8 H (22.0-30.0) sec Sodium (137-145) mmol/L Chloride (98-107) mmol/L Glucose (74-99) mg/dL Plasma Lactic Acid Rosas (0.7-2.0) mmol/L AST (14-36) U/L ALT (4-34) U/L Alkaline Phosphatase (38-126) U/L Troponin I (0.000-0.034) ng/mL Total Protein (6.3-8.2) g/dL Albumin (3.5-5.0) g/dL Assessment and Plan Assessment: This is a 80-year-old female with past medical history noted below who presented to the emergency room after waking up at home covered with blood and finding a laceration on her forehead. Patient does not recall what happened or if she had the syncope and hit her head. She was evaluated in the ER and admitted to the hospital for further management of her medical problems noted below. 1. Non-ST elevation DE, started on IV heparin drip. Seen and evaluated by cardiology. Twelve-lead EKG with no acute ischemic changes. Echocardiogram ordered for further evaluation. Continue Lipitor, lisinopril, and aspirin 81 mg daily 2. Underlying seizure disorder, maintained on Keppra. Keppra level pending. EEG ordered. Computed tomography scan of the head at outside facility with no acute finding 3. Essential hypertension, blood pressure within acceptable range. Continue to monitor 4. Chronic medical problems, hypothyroidism, history of left-sided carotid endarterectomy Today, I reviewed her medication list and lab work results. Continue telemetry monitoring. Repeat lab work in the morning.
[2021-01-24] MEDS: LACTOBACILLUS ACIDOPH & BULGAR 1 EACH PACKET PO SCH (15:25)
[2021-01-24] MEDS: ASPIRIN 81 MG PO SCH (15:25)
--- NOTE | 2021-01-24 16:32 | ECHOF ---
Referral Reason:NSTEMI, syncope MEASUREMENTS -------- HEIGHT: 167.6 cm WEIGHT: 71.2 kg BP: RVIDd: 2.5 cm (< 3.3) IVSd: 1.0 cm (0.6 - 1.1) LVIDd: 4.1 cm (3.9 - 5.3) LVPWd: 1.4 cm (0.6 - 1.1) IVSs: 1.7 cm LVIDs: 1.8 cm LVPWs: 1.5 cm LAESV Index (A-L): 25.26 ml/m Ao Diam: 2.9 cm (2.0 - 3.7) AV Cusp: 1.9 cm (1.5 - 2.6) LA Diam: 3.8 cm (2.7 - 3.8) MV EXCURSION: 14.642 mm (> 18.000) MV EF SLOPE: 154 mm/s (70 - 150) EPSS: 0.7 cm MV E Juancarlos: 1.03 m/s MV DecT: 251 ms MV A Juancarlos: 1.33 m/s MV E/A Ratio: 0.78 AR PHT: 579 ms RAP: 5.00 mmHg RVSP: 15.74 mmHg FINDINGS -------- This was a technically good study. The left ventricular size is normal. There is mild concentric left ventricular hypertrophy. Overa ll left ventricular systolic function is normal with, an EF between 55 - 60 %. Normal LAP Grade 1 D iastolic Dysfunction. The right ventricle is normal in size. The left atrial size is normal. Normal LA size by volume 22+/-6 ml/m2. The right atrial size is normal. The aortic valve is trileaflet and appears structurally normal. There is mild aortic regurgitation. The mitral valve is normal. Mild mitral regurgitation is present. The tricuspid valve appears structurally normal. Mild tricuspid regurgitation present. Right vent ricular systolic pressure is normal at < 35 mmHg. There is no pulmonic regurgitation present. The aortic root size is normal. Normal inferior vena cava with normal inspiratory collapse consistent with estimated right atrial pre ssure of 5 mmHg. There is no pericardial effusion. CONCLUSIONS -------- 1. The left ventricular size is normal. 2. There is mild concentric left ventricular hypertrophy. 3. Overall left ventricular systolic function is normal with, an EF between 55 - 60 %. 4. Normal LAP Grade 1 Diastolic Dysfunction. 5. There is mild aortic regurgitation. 6. Mild mitral regurgitation is present. 7. Mild tricuspid regurgitation present. 8. There is no pericardial effusion. MINERALOGY PROFESSOR: Ping Moody RDCS
[2021-01-24 21:09] VITALS: RESP 18
[2021-01-25] MEDS: LEVOTHYROXINE 137 MCG TAB PO SCH (06:02)
[2021-01-25] MEDS: PANTOPRAZOLE 40 MG TABLET PO SCH (06:02)
[2021-01-25] MEDS: amLODIPine 2.5 MG TAB PO SCH (09:19)
[2021-01-25] MEDS: ASPIRIN 81 MG PO SCH (09:19)
[2021-01-25] MEDS: LACTOBACILLUS ACIDOPH & BULGAR 1 EACH PACKET PO SCH (09:19)
--- NOTE | 2021-01-25 12:59 | P.PN ---
Subjective Progress Note Date: 01/25/21 History of present illness: This is an 80-year-old female with past medical history of hypertension, seizure disorder- last seizure 8 years ago, hypothyroidism, Rheumatoid arthritis history of left-sided carotid endarterectomy. Patient states she has seen a spooler operator automatic in [place] and recently underwent stress testing at that time which was unremarkable. She is not sure what other testing has been done. Patient apparently was sleeping and woke up to find blood on her face and realized she had a laceration on her forehead and bruise on her right knee but did not recall any incident. She initially went to [facility] and underwent CAT scan of the brain and cervical spine which apparently was unremarkable. She had a troponin that came back at 0.06. Patient denies having any chest pain, sh ortness of breath, lightheadedness or dizziness. Patient was transferred to [facility] emergency center for evaluation. Troponins were found to be 0.773, 1.030, 1.020. EKG normal sinus rhythm with no acute ST changes. Afebrile, heart rate 60s and 70s, blood pressure 148/76, pulse ox 96% on room air Other lab work of note, CBC unremarkable. Sodium 136. Lactic acid 2.7 with re peat of 0.9. Liver function tests were elevated at AST 83, ALT 51, alkaline phosphatase 144. BUN 16 and creatinine 0.7. Coronavirus PCR not detected. Chest x-ray showed no acute cardiopulmonary process. Patient was started on heparin drip, Lipitor 40 mg daily and home medications were resumed, echocardiogram and EEG were ordered. 01/25: Echocardiogram reveals EF of 55-60% with mild concentric left ventricular hypertrophy, mild aortic regurgitation, mild mitral regurgitation, mild tricuspid regurgitation. Patient denies having any chest pain, shortness of breath, lightheadedness or dizziness. nuclear monitoring technician is a sinus rhythm running in the 70s. Physical examination: Gen: This is an 80-year-old female. She is resting in bed and appears to be in no acute distress. VS: Afebrile, heart rate 63, blood pressure 155/76, pulse ox 97% on room air. HEENT: Head is atraumatic, normocephalic. Pupils equal, round. Sclerae is anicteric. NECK: Supple. No JVD. No lymphadenopathy. No thyromegaly. LUNGS: Clear to auscultation. No wheezes or rhonchi. No intercostal retractions. HEART: Regular rate and rhythm. Systolic murmur. ABDOMEN: Soft. Bowel sounds are present. No masses. No tenderness. EXTREMITIES: No pedal edema. No calf tenderness. Dorsalis pedis +2 bilaterally. NEUROLOGICAL: Patient is awake, alert and oriented x3. Cranial nerves 2 through 12 are grossly intact. Assessment: Possible non-ST elevated myocardial infarction has been ruled out Scalp laceration Hypertension Seizure disorder history Hypothyroidism Rheumatoid arthritis History of left-sided carotid endarterectomy Plan: Continue Lipitor, lisinopril and amlodipine Patient is cleared from cardiology for discharge home Recommend follow-up with her spooler operator automatic for outpatient stress test Thank you kindly for this consultation. Nurse practitioner note has been reviewed, I agree with documented findings and plan of care. Patient was seen and examined. Objective - Vital Signs Vital signs: Vital Signs Temp 98.3 F 01/25/21 08:00 Pulse 63 01/25/21 08:00 Resp 18 01/25/21 08:00 BP 155/76 01/25/21 08:00 Pulse Ox 97 01/25/21 08:00 Intake & Output 01/24/21 01/25/21 01/25/21 18:59 06:59 18:59 Intake Total 540 10 240 Balance 540 10 240 Weight 71.1 kg Intake: IV 10 0.9 10 Oral 540 240 Other: Voiding Method Toilet Toilet # Voids 1 1 - Labs CBC & Chem 7: 01/24/21 08:13 01/24/21 08:13
--- NOTE | 2021-01-25 13:42 | P.PN ---
Subjective Patient is doing well today. She was up to the bathroom with no difficulty. She denies dizziness or lightheadedness. No events on the clinical research monitor. Objective - Vital Signs Vital signs: Vital Signs Temp 98.3 F 01/25/21 12:00 Pulse 65 01/25/21 12:00 Resp 18 01/25/21 12:00 BP 117/65 01/25/21 12:00 Pulse Ox 97 01/25/21 12:00 Intake & Output 01/24/21 01/25/21 01/25/21 18:59 06:59 18:59 Intake Total 540 10 500 Balance 540 10 500 Weight 71.1 kg Intake: IV 10 20 0.9 10 Invasive Line 1 20 Oral 540 480 Other: Voiding Method Toilet Toilet # Voids 1 1 - Exam General: The patient is awake and alert, in no distress. Patient has approximately 3 cm laceration on the forehead that was sutured in the emergency room Eye: there is normal conjunctiva bilaterally. Neck: The neck is supple, there is no JVD. Cardiovascular: Normal S1-S2, no S3-S4, no murmurs. Respiratory: Lungs clear to auscultation bilaterally Gastrointestinal: Abdomen is soft, nontender Musculoskeletal: There is no pedal edema. Neurological:. Speech is normal. Skin: Skin is warm and dry - Labs CBC & Chem 7: 01/24/21 08:13 01/24/21 08:13 Assessment and Plan Assessment: This is a 80-year-old female with past medical history noted below who presented to the emergency room after waking up at home covered with blood and finding a laceration on her forehead. Patient does not recall what happened or if she had the syncope and hit her head. She was evaluated in the ER and admitted to the hospital for further management of her medical problems noted below. 1. Non-ST elevation WI, started on IV heparin drip. Seen and evaluated by cardiology. Twelve-lead EKG with no acute ischemic changes. Echocardiogram showed preserved ejection fraction with no significant valvular abnormality. Continue Lipitor, lisinopril, and aspirin 81 mg daily 2. Underlying seizure disorder, maintained on Keppra. Keppra level pending. EEG ordered. Computed tomography scan of the head at outside facility with no acute finding 3. Essential hypertension, blood pressure within acceptable range. Continue to monitor 4. Chronic medical problems, hypothyroidism, history of left-sided carotid endarterectomy Today, I reviewed her medication list and lab work results. Patient was cleared by cardiology for discharge home. Awaiting EEG tomorrow. I would also obtain carotid Doppler given history of left endarterectomy.
--- NOTE | 2021-01-25 14:38 | US ---
EXAMINATION TYPE: US carotid duplex BILAT DATE OF EXAM: 01/25/2021 COMPARISON: NONE CLINICAL HISTORY: syncope. history of right endarterectomy. EXAM MEASUREMENTS: RIGHT: Peak Systolic Velocity (PSV) cm/sec ----- Right CCA: 206.5 ----- Right ICA: 201.9 ----- Right ECA: 329.7 ICA/CCA ratio: 1.0 RIGHT: End Diastole cm/sec ----- Right CCA: 27.6 ----- Right ICA: 36.9 ----- Right ECA: 0.0 LEFT: Peak Systolic Velocity (PSV) cm/sec ----- Left CCA: 88.7 ----- Left ICA: 194.9 ----- Left ECA: 91.9 ICA/CCA ratio: 2.2 LEFT: End Diastole cm/sec ----- Left CCA: 19.2 ----- Left ICA: 46.2 ----- Left ECA: 14.4 VERTEBRALS (direction of flow): Right Vertebral: Antegrade Left Vertebral: Antegrade There is antegrade flow in the vertebral arteries. Rhythm: Normal Right side has extensive soft and hard plaque throughout all vessels, with elevated velocities throug hout all vessels.Left side has extensive shadowing plaque at bulb with elevated ICA velocity. There i s also extensive plaque throughout CCA. IMPRESSION: Images and measurements suggest at least 70% stenosis of the common internal and external carotid art eries bilaterally. Criteria for Assigning % of Stenosis / Diameter reduction (Estimation based on the indirect measurements of the internal carotid artery velocities (ICA PSV). 1. Normal (no stenosis)=ICA PSV < 125 cm/s: ratio < 2.0: ICA EDV<40 cm/s. 2. Less than 50% stenosis=ICA PSV < 125 cm/s: ratio < 2.0: ICA EDV<40 cm/s. 3. 50 to 69% stenosis=ICA PSV of 125 to 230 cm/s: ration 2.0 ? 4.0: ICA EDV 40-100 cm/s. 4. Greater than 70% stenosis to near occlusion= ICA PSV > 230 cm/s: ratio > 4.0: ICA EDV > 100 cm/s. 5. Near occlusion= ICA PSV velocities may be low or undetectable: variable ratio and ICA EDV. 6. Total occlusion=unable to detect flow.
[2021-01-25] MEDS: ATORVASTATIN 40 MG TAB PO SCH (20:14)
[2021-01-26] MEDS: PANTOPRAZOLE 40 MG TABLET PO SCH (06:19)
[2021-01-26] MEDS: LEVOTHYROXINE 137 MCG TAB PO SCH (06:19)
[2021-01-26] MEDS: ASPIRIN 81 MG PO SCH (09:40)
[2021-01-26] MEDS: LACTOBACILLUS ACIDOPH & BULGAR 1 EACH PACKET PO SCH (09:40)
[2021-01-26] MEDS: amLODIPine 2.5 MG TAB PO SCH (09:40)
--- NOTE | 2021-01-26 11:24 | P.CNNES ---
History of Present Illness Consult date: 01/26/21 Requesting physician: Ju Oneill Reason for Consult: syncope vs seizure History of Present Illness: This is an 80-year-old woman with medical history with history of seizure (last seizure 8 years ago), left carotid endarterectomy, hypertension, hypothyroidism, rheumatoid arthritis who was transferred to our emergency department on 01/23/2021 for further workup of her syncopal episode. Patient woke up found her face covered with blood and had laceration over the forehead as well but loses of the right knee without recollection of what transpired. Some of the history is obtained from medical record. Per patient she woke-up with her pillow filled with blood, and once she noticed there was blood product on her face. She denies of tongue bite/soreness of tongue, urinary or bowel incontinence. Patient stated that the she has occasional presyncope with palpitation. She denies any recent seizure and her last seizure was 8 years ago and she is compliant taking her Keppra medication (750mg 1 tab bid). She lives home alone but her family checks up on her on a regular basis and she stated that the her family spoke to her that evening prior to presenting the hospital and in the morning and he found her without incident as noted above. She denies headaches, neck pain, any recent fever, rash. Denies any travel recently (she thinks it has been a while). Denies any sick contacts. Denies any focal weakness. She presented to outside facility/[facility] and that she had a CT of the head which was negative. CT of the head is reported as there may be a scalp contusion or laceration of the long the anterior right frontal region. No underlying acute intracranial abnormality seen. Similar mild to moderate generalized cerebral atrophy. Per the ED note is that it is stated that she also had CT of the cervical spine which was also unremarkable. It is reported as similar reversal the normal cervical lordosis with degenerative grade 1 at enteral phthisis C2 to C3, C3 to C4 and C7 to T1. Moderate multilevel spondylosis changes. No acute fracture seen. Seems that the patient had the trending of troponin and it is reported that she has an STEMI and is on IV heparin drip initially that was stopped per cardiology recommendation. Estimated her last seizure was about 8 years ago. She said that she has generalized tonic-clonic seizure as well as she had the different seizure as an adolescent. She said that she had seizures since 13 years old. She denies any hoarseness seizures. She denies any tongue bite urinary or bowel incontinence. Of note patient stated she has not followed-up with a neurologist within one year since has moved to a new area and lives close to [facility]. Some of the workup in our facility consisted of: Initial vital signs: Blood pressure of 146/67, heart rate of 64, respiratory of 16, temperature of 97.4 Fahrenheit oral and pulse ox of 96% room air and so far the patient has been afebrile in our facility. CBC with differential on presentation is unremarkable. Troponin on presentation is 0.7-3 and it was as high as 1.02 Most recent chem. Panel is the sodium is 136, ranitidine is 0.79, calcium is 8.6, AST of 63 ALT of 38. Most recent serum glucose is 102. Initial plasma lactic acid venous is 2.7 and the repairs 0.9 which resolved. 2-D echo was reported as left ventricle size is normal. Mild concentric left ventricle hypertrophy. Ejection fraction 55-60%. Left atrial size is normal. Carotid duplex is reported as images and measurements suggest at least 70% stenosis of the common internal and external carotid arteries bilaterally. Keppra level was 21.4 and a normal value is between 3-60 and she is therapeutic Sims virus was not detected. She had suture of laceration of forehead. Review of Systems Review of system: The 12 point system was reviewed and apparent positive and negative per HPI. Past Medical History Past Medical History: GERD/Reflux, Hypertension, Rheumatoid Arthritis (RA), Seizure Disorder, Thyroid Disorder History of Any Multi-Drug Resistant Organisms: None Reported Additional Past Surgical History / Comment(s): endarctectomy Past Anesthesia/Blood Transfusion Reactions: No Reported Reaction Past Psychological History: Depression Smoking Status: Current every day smoker Past Alcohol Use History: Occasional Past Drug Use History: None Reported - Past Family History Family Family Medical History: Coronary Artery Disease (CAD) Medications and Allergies Home Medications Medication Instructions Recorded Confirmed Type levETIRAcetam [Keppra] 750 mg PO BID 08/27/18 01/23/21 History lisinopriL [Zestril] 2.5 mg PO DAILY 08/27/18 01/23/21 History Lactobacillus Acidophilus 1 cap PO DAILY 01/23/21 01/23/21 History [Acidophilus Probiotic] Levothyroxine Sodium [Synthroid] 137 mcg PO DAILY 01/23/21 01/23/21 History Omeprazole 40 mg PO DAILY 01/23/21 01/23/21 History amLODIPine [Norvasc] 2.5 mg PO DAILY 01/23/21 01/23/21 History Allergies Allergy/AdvReac Type Severity Reaction Status Date / Time cephalexin [From Keflex] Allergy Itching Verified 01/23/21 19:50 Physical Examination - Vital Signs Vital Signs: Vital Signs Temp Pulse Resp BP Pulse Ox 01/26/21 08:40 98.2 F 59 L 18 107/52 97 01/26/21 01:02 98.0 F 63 18 129/55 96 01/25/21 20:00 97.9 F 63 18 111/56 97 01/25/21 14:00 98.3 F 65 18 117/65 97 Intake and Output 01/25/21 01/26/21 01/26/21 22:59 06:59 14:59 Intake Total 1100 10 260 Balance 1100 10 260 Intake: IV 10 0.9 10 Oral 1100 260 Other: Voiding Method Toilet # Voids 2 1 # Bowel Movements 1 GENERAL: The patient is lying in bed and is not in acute distress. HENT: Supple neck. Has suture over the forehead and residual blood product on scalp. Has echymoses of the both eye (as if racoon eyes). CHEST: The heart rate is regular rate rhythm. No murmurs to auscultation. Carotid bruit noted over the right. LUNG: Clear to auscultation bilaterally no wheezing noted throughout. Not labored breathing. ABDOMEN/GI: Bowel sounds present in all 4 quadrants. No tenderness to palpation throughout. NEUROLOGICAL: Higher mental function: The patient is awake, alert, oriented to self, place and time. Patient is following commands. No aphasia and no neglect. Cranial nerves: The pupils are round, equal and reactive to light and accommodation. Visual barnes are full to confrontation throughout. Extraocular movement is intact no nystagmus is noted. Facial sensation is normal to touch throughout. The facial strength is normal throughout. Hearing is normal bilaterally to hand rub. Tongue is midline and moved [id number] without any difficulty. No dysarthria is noted. Shoulder shrug is normal bilaterally. Motor: Gait is deferred. The strength is 5 over 5 throughout (hands strength are limited because.of significant arthritis) Normal tone and bulk. Cerebellum: Normal finger to nose heel to davalos bilaterally. Sensation: Sensation is normal to touch throughout. Reflexes (right/left): 2+ throughoute except ankles are 1+ bilaterally.. Plantars are mute bilaterally. Results - Laboratory Findings CBC and BMP: 01/24/21 08:13 01/24/21 08:13 Abnormal Lab Findings: Abnormal Labs 01/23/21 01/23/21 01/23/21 17:15 17:15 17:15 RBC Hgb Hct RDW APTT 30.7 H Sodium 136 L Chloride Glucose 100 H Plasma Lactic Acid Rosas AST 83 H ALT 51 H Alkaline Phosphatase 144 H Troponin I 0.723 H* Total Protein Albumin 01/23/21 01/23/21 01/24/21 23:01 23:01 00:21 RBC Hgb Hct RDW APTT Sodium Chloride Glucose Plasma Lactic Acid Rosas 2.7 H* AST ALT Alkaline Phosphatase Troponin I 1.030 H* 1.020 H* Total Protein Albumin 01/24/21 01/24/21 01/24/21 00:21 08:13 08:13 RBC 3.79 L Hgb 10.9 L Hct 32.9 L RDW 15.6 H APTT 62.9 H Sodium 136 L Chloride 108 H Glucose 102 H Plasma Lactic Acid Rosas AST 63 H ALT 38 H Alkaline Phosphatase Troponin I Total Protein 6.1 L Albumin 2.9 L 01/24/21 08:13 RBC Hgb Hct RDW APTT 79.8 H Sodium Chloride Glucose Plasma Lactic Acid Rosas AST ALT Alkaline Phosphatase Troponin I Total Protein Albumin Assessment and Plan Assessment: This is an 80-year-old woman who presented after which about home covered with blood and finding laceration on her forehead but does not recall what transpired Syncopal episode. Cannot exclude seizure. History of epilepsy and the last seizure was about 8 years ago and her Keppra level was therapeutic. Bilateral common/internal and external carotid arteries stenosis of at least 70% stenosis per carotid duplex (on auscultation felt positive carotid bruit over the right). Possible Non-ST elevation AR History of left carotid endarterectomy Essential hypertension Hypothyroidism Plan: An EEG is ordered by the primary team and is pending. Recommend MRI of the brain with and without (but patient wants to get it as outpatient). Patient is continues on her home dose of Keppra 750mg 1 tab bid. Patient is on aspirin 81 mg daily. Because of the carotid stenosis recommend ASA 81mg and Plavix 75mg daily (if CTA neck reveals significant carotid stenosis). Continue Lipitor 40mg qhs. On seizure precaution. Continue neuro checks Regarding the carotid stenosis, consulted vascular team. I ordered CTA head and neck. We'll defer the rest of the medical management to the primary team. Upon discharge recommend the patient to follow-up with a neurologist within 1-2 weeks. Thank you for the consultation. The plan is discussed with her nurse Vega Fernández M.D. Neuro-hospital is Time with Patient: Greater than 30
--- NOTE | 2021-01-26 11:34 | P.GSCN ---
History of Present Illness Consult date: 01/26/21 Reason for Consult: Carotid stenosis Requesting physician: Vega Fernández History of present illness: This is an 80-year-old female who presented to our emergency department 3 days ago as a transfer from [facility] after she had woken up and seen blood on her pillow. Patient was unsure what had occurred, she had no recollection of the events from the prior evening. She woke up and had bruising under her eyes and a laceration on her forehead which was bleeding. She does have a previous history of seizure disorder currently on medications, however reports her last seizure was 8-10 years ago. Patient has a past medical history of hypertension, hyperlipidemia, current every day smoker at least one pack per day greater than 60 years, and carotid stenosis and is status post right ICA endarterectomy at least [address] Elizabeth. Patient denied at that time or currently of any focal deficits such as upper or lower extremity weakness, slurred speech or difficulty finding words, visual changes, difficulty swallowing, or facial drooping. When she initially presented to [facility] she had complaints of chest pain with elevation in troponin and started the patient on heparin. She was transferred to our facility for further cardiac workup as well as neuro workup. She did have CT of the brain and cervical spine at [facility] which was negative for any acute findings. The patient is currently denying any shortness of breath, chest pain, abdominal pain, focal deficits, fever, chills or any seizure-like activity. Patient did have a carotid ultrasound had showed right ICA PSV 201.9 with ICA/CCA ratio 1.0, left ICA PSV 194.9, ratio 2.2. Impression states measurement suggests at least 70% stenosis of the common internal and external carotid arteries bilaterally. Review of Systems A 14 point review of systems was completed all pertinent positives and negatives as stated in the HPI Past Medical History Past Medical History: GERD/Reflux, Hypertension, Rheumatoid Arthritis (RA), Seizure Disorder, Thyroid Disorder History of Any Multi-Drug Resistant Organisms: None Reported Additional Past Surgical History / Comment(s): endarctectomy Past Anesthesia/Blood Transfusion Reactions: No Reported Reaction Past Psychological History: Depression Smoking Status: Current every day smoker Past Alcohol Use History: Occasional Past Drug Use History: None Reported - Past Family History Family Family Medical History: Coronary Artery Disease (CAD) Medications and Allergies Home Medications Medication Instructions Recorded Confirmed Type levETIRAcetam [Keppra] 750 mg PO BID 08/27/18 01/23/21 History lisinopriL [Zestril] 2.5 mg PO DAILY 08/27/18 01/23/21 History Lactobacillus Acidophilus 1 cap PO DAILY 01/23/21 01/23/21 History [Acidophilus Probiotic] Levothyroxine Sodium [Synthroid] 137 mcg PO DAILY 01/23/21 01/23/21 History Omeprazole 40 mg PO DAILY 01/23/21 01/23/21 History amLODIPine [Norvasc] 2.5 mg PO DAILY 01/23/21 01/23/21 History Allergies Allergy/AdvReac Type Severity Reaction Status Date / Time cephalexin [From Keflex] Allergy Itching Verified 01/23/21 19:50 Surgical - Exam Vital Signs Temp Pulse Resp BP Pulse Ox 97.4 F L 64 16 148/67 96 01/23/21 17:14 01/23/21 17:14 01/23/21 17:14 01/23/21 17:14 01/23/21 17:14 General appearance: The patient is alert, oriented, appears in no acute dist ress. HET: Head is normocephalic with ecchymosis underneath bilateral eyes. Laceration on forehead, well approximated. Pupils are equal and reactive. Neck: Supple without lymphadenopathy. Trachea midline. Left carotid bruit. Heart: S1 S2. Regular rate and rhythm. Lungs: Diminished bilaterally. Abdomen: Soft, nontender, nondistended. Extremities: Normal skin color and turgor. No cyanosis, rash, ulceration, clubbing, or edema. Radial radial pulse +2 right side, +1 left. Positive left radial and brachial Doppler signal. Neurological: No focal deficits. Strength and sensation are grossly intact. Results - Labs 01/24/21 08:13 01/24/21 08:13 - Imaging Comments: Carotid ultrasound: Images and measurement suggests at least 70% stenosis of the common internal and external carotid arteries bilaterally. Assessment and Plan Assessment: 1. Bilateral ICA stenosis, at least 70% per carotid ultrasound 2. Recent fall 3. History of seizure disorder 4. Chest pain 5. Current smoker, 1 pack per day greater than 60 years 6. History of hypertension 7. History of hyperlipidemia Plan: 1. Continue aspirin and statin 2. Agree with CTA head and neck 3. Carotid ultrasound reviewed 4. Further recommendations to follow Thank you for this consultation, and allowing us take part in the plan of care of your patient during her hospital stay. The impression and plan of care has been dictated as directed. Dr. Bills I performed a history and examination of this patient, discussed the same with the dictator. I agree with the dictator's note ,documented as a scribe. Any additional findings or plans will be noted.
--- NOTE | 2021-01-26 13:36 | P.PN ---
Subjective Patient is doing well today. She denies dizziness or lightheadedness. No events on the radiation monitor. Objective - Vital Signs Vital signs: Vital Signs Temp 98.2 F 01/26/21 08:40 Pulse 59 L 01/26/21 08:40 Resp 18 01/26/21 08:40 BP 107/52 01/26/21 08:40 Pulse Ox 97 01/26/21 08:40 Intake & Output 01/25/21 01/26/21 01/26/21 18:59 06:59 18:59 Intake Total 1600 10 520 Balance 1600 10 520 Intake: IV 20 10 0.9 10 Invasive Line 1 20 Oral 1580 520 Other: Voiding Method Toilet # Voids 2 1 # Bowel Movements 1 - Exam General: The patient is awake and alert, in no distress. Patient has approximately 3 cm laceration on the forehead that was sutured in the emergency room Eye: there is normal conjunctiva bilaterally. Neck: The neck is supple, there is no JVD. Cardiovascular: Normal S1-S2, no S3-S4, no murmurs. Respiratory: Lungs clear to auscultation bilaterally Gastrointestinal: Abdomen is soft, nontender Musculoskeletal: There is no pedal edema. Neurological:. Speech is normal. Skin: Skin is warm and dry - Labs CBC & Chem 7: 01/24/21 08:13 01/24/21 08:13 Assessment and Plan Assessment: This is a 80-year-old female with past medical history noted below who presented to the emergency room after waking up at home covered with blood and finding a laceration on her forehead. Patient does not recall what happened or if she had the syncope and hit her head. She was evaluated in the ER and admitted to the hospital for further management of her medical problems noted below. 1. Non-ST elevation NM, started on IV heparin drip. Seen and evaluated by cardiology. Twelve-lead EKG with no acute ischemic changes. Echocardiogram showed preserved ejection fraction with no significant valvular abnormality. Continue Lipitor, lisinopril, and aspirin 81 mg daily 2. Underlying seizure disorder, maintained on Keppra. Keppra level pending. EEG ordered. Computed tomography scan of the head at outside facility with no acute finding 3. Essential hypertension, blood pressure within acceptable range. Continue to monitor 4. Carotid stenosis, with 70% stenosis noted bilaterally in the common internal and external carotid arteries on ultrasound Doppler. CT angiogram ordered for further evaluation. Patient was seen and evaluated by vascular surgery and neurology. 5. Chronic medical problems, hypothyroidism, history of left-sided carotid endarterectomy Today, I reviewed her medication list and lab work results. Patient was cleared by cardiology for discharge home. Awaiting EEG and CT angiogram result
--- NOTE | 2021-01-26 15:26 | CT ---
EXAMINATION TYPE: CT angio head neck DATE OF EXAM: 01/26/2021 HISTORY: Carotid stenosis COMPARISON: Carotid ultrasound from yesterday CT DLP: 1431.8 mGycm. Automated Exposure Control for Dose Reduction was Utilized. TECHNIQUE: CTA scan of the head and neck are performed without and with IV Contrast, patient injecte d with 65 ml mL of Isovue 370, axial images are obtained, coronal and sagittal reformatted images are reviewed. 3D reconstructed images are created on an independent workstation and reviewed. FINDINGS: Carotid/Vascular Structures: Moderate peripheral plaque in the aortic arch. Significant stenosis at o rigin of the left common carotid artery due to noncalcified plaque , lumen diameter narrowed to 1.5 m m raw data slice 80 with reconstitution distal to this measuring 8.2 mm. This correlates with axial image 11. Moderate to severe plaque left subclavian artery without stenosis near 50% distally near ax ial image 23 noted. Right common carotid artery shows normal origin from the right brachiocephalic artery. Moderate to se edwardo plaque along course of the right common carotid artery with stenosis to 2.7 mm raw data slice 24 8 and distal reconstitution to 8.6 mm noted. Focal linear hypodensity consistent with dissection next image 42 noted right before the bifurcation. No extension into the bifurcation. Findings presumed ch ronic. No significant stenosis at origin of the right internal carotid artery. Stenosis approaching 5 0% at origin of right external carotid artery. Mild calcified plaque mid segment right internal carot id artery. Moderate to severe noncalcified plaque proximal to midportion of left common carotid artery causes st enosis approaching but under 50%. Moderate to severe mixed plaque in the carotid bulb causes stenosis under 50%. Patent external carotid artery without significant stenosis. Codominant vertebral arteries patent to basilar junction. No significant focal stenosis or aneurysm. Patent bilateral posterior communicating arteries. Hypoplastic anterior communicating artery. No sign ificant focal stenosis or aneurysm in the anterior circulation. Other: Noncontrast head CT shows no acute intracranial hemorrhage or midline shift. Moderate ventricu lar and sulcal prominence. Mild to Moderate low-attenuation in the periventricular white matter. Glob es are intact and visualized sinuses are clear. Straightening of cervical spine on sagittal images. Moderate to severe disk space narrowing in the m id to lower cervical spine on sagittal images mildly effacing the anterior spinal canal. IMPRESSION: 1. Significant stenosis at origin of left common carotid artery, degree of stenosis between 80-85%. 2. Stenosis right common carotid artery measure between 65 and 70%. 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 No extension into internal right carotid artery. 3. No significant stenosis or aneurysm at the level cabazon of [place]. NASCET criteria was used in interpretation of this exam?
[2021-01-26 17:28] VITALS: BP 114/53; PULSE 61; TEMP 98.6
--- NOTE | 2021-01-27 07:39 | P.DS ---
Providers Date of admission: 01/23/21 20:37 Expected date of discharge: 01/26/21 Attending physician: Johnny Pacheco MD Consults: 01/23/21 20:38 Consult Physician Urgent Consulting Provider: Palmira Tiwari Consult Reason/Comments: nstemi Do you want consulting provider notified?: Already Contacted 01/26/21 07:47 Consult Physician Routine Consulting Provider: Cathryn Anderson Consult Reason/Comments: syncope, seizure Do you want consulting provider notified?: Yes 01/26/21 10:16 Consult Physician Routine Consulting Provider: Yunior Oleary Consult Reason/Comments: bilateral carotid stenosis Do you want consulting provider notified?: Yes Primary care physician: Stated None Hospital Course: This is a 80-year-old female with past medical history noted below who presented to the emergency room after waking up at home covered with blood and finding a laceration on her forehead. Patient does not recall what happened or if she had the syncope and hit her head. She was evaluated in the ER and admitted to the hospital for further management of her medical problems noted below. 1. Non-ST elevation AK, started on IV heparin drip. Seen and evaluated by cardiology. Twelve-lead EKG with no acute ischemic changes. Echocardiogram showed preserved ejection fraction with no significant valvular abnormality. Continue Lipitor, lisinopril, and aspirin 81 mg daily 2. Underlying seizure disorder, maintained on Keppra. Levels within therapeutic range. Computed tomography scan of the head at outside facility with no acute finding. Patient was seen and evaluated by neurology. Cleared for discharge home. 3. Essential hypertension, blood pressure within acceptable range. Continue to monitor 4. Carotid stenosis, with 70% stenosis noted bilaterally in the common internal and external carotid arteries on ultrasound Doppler. CT angiogram ordered and reviewed. Seen and evaluated by vascular surgery. Plan to follow up outpatient as directed. 5. Chronic medical problems, hypothyroidism, history of left-sided carotid endarterectomy Patient was seen and evaluated by me on the day of discharge. She will be discharged home in a stable condition. Physical exam: General: The patient is awake and alert, in no distress Eye: there is normal conjunctiva bilaterally. Neck: The neck is supple, there is no JVD. Cardiovascular: Normal S1-S2, no S3-S4, no murmurs. Respiratory: Lungs clear to auscultation bilaterally Gastrointestinal: Abdomen is soft, nontender Musculoskeletal: There is no pedal edema. Neurological:. Speech is normal. Skin: Skin is warm and dry Patient Condition at Discharge: Stable Plan - Discharge Summary Discharge Rx Participant: No New Discharge Prescriptions: New Aspirin 81 mg PO DAILY #30 tab Atorvastatin [Lipitor] 40 mg PO HS #30 tab Continue lisinopriL [Zestril] 2.5 mg PO DAILY levETIRAcetam [Keppra] 750 mg PO BID Lactobacillus Acidophilus [Acidophilus Probiotic] 1 cap PO DAILY Omeprazole 40 mg PO DAILY Levothyroxine Sodium [Synthroid] 137 mcg PO DAILY amLODIPine [Norvasc] 2.5 mg PO DAILY Discharge Medication List levETIRAcetam [Keppra] 750 mg PO BID 08/27/18 [History] lisinopriL [Zestril] 2.5 mg PO DAILY 08/27/18 [History] Lactobacillus Acidophilus [Acidophilus Probiotic] 1 cap PO DAILY 01/23/21 [History] Levothyroxine Sodium [Synthroid] 137 mcg PO DAILY 01/23/21 [History] Omeprazole 40 mg PO DAILY 01/23/21 [History] amLODIPine [Norvasc] 2.5 mg PO DAILY 01/23/21 [History] Aspirin 81 mg PO DAILY #30 tab 01/26/21 [Rx] Atorvastatin [Lipitor] 40 mg PO HS #30 tab 01/26/21 [Rx] Follow up Appointment(s)/Referral(s): Rebecca Bills DO [STAFF PHYSICIAN] - 2 Weeks Eligio Phillips MD [Medical Doctor] - 2 Weeks None,Stated [Primary Care Provider] - 1-2 days Patient Instructions/Handouts: Heart Attack (DC), Care For Your Stitches (ED), Laceration (ED), Heart Healthy Diet (ED), Concussion (ED) Activity/Diet/Wound Care/Special Instructions: Follow up with [facility] in [place] for stress test Discharge Disposition: HOME SELF-CARE
--- NOTE | 2021-01-27 08:21 | EEG ---
ELECTROENCEPHALOGRAM REPORT DATE OF SERVICE: 01/23/2021 CLINICAL HISTORY: This is an 80-year-old woman with an episode of confusion. The video EEG is obtained to evaluate for seizure epileptiform activity. RELEVANT MEDICATION: The patient on Keppra. EEG TYPE: A routine 21-channel EEG is performed with video using the 10/20 electrode placement system. DESCRIPTION: Wakefulness is only obtained. During wakefulness, there is a posterior dominant rhythm of low to moderate voltage, reactive, well modulated of 8.5-9 hertz activity. There is no sleep architecture seen. There is no focal slowing seen. Interictal and ictal is none. ACTIVATION PROCEDURE: Photic stimulation did not evoke a posterior driving response. There is no abnormality during the photic stimulation. Hyperventilation is not performed. CLINICAL INTERPRETATION: This is a normal routine EEG. There are no focal slowing, epileptiform discharge or seizure on the EEG. Clinical correlation is recommended. ILYA / SHANTELLE: [id number] / RADHA
== END 2021-01-26 19:04 | disposition home or self-care (01) | DRG 281 ==
LOC: EC 16:53 → 3SCARD 20:37
PROVIDERS: ADMIT Internal Medicine; ATTEND Internal Medicine
PROC: 0HQ1XZZ Repair Face Skin, External Approach (ICD-10-PCS; principal; 2021-01-23)
DX: I21.4 Non-ST elevation (NSTEMI) myocardial infarction (principal); E87.2 Acidosis; S01.01XA Laceration without foreign body of scalp, initial encounter; S01.81XA Laceration without foreign body of other part of head, initial encounter; E03.9 Hypothyroidism, unspecified; S61.412A Laceration without foreign body of left hand, initial encounter; Z20.822 Contact with and (suspected) exposure to COVID-19; I11.9 Hypertensive heart disease without heart failure; R00.2 Palpitations; R55 Syncope and collapse; G40.909 Epilepsy, unspecified, not intractable, without status epilepticus; K21.9 Gastro-esophageal reflux disease without esophagitis; M06.9 Rheumatoid arthritis, unspecified; E78.5 Hyperlipidemia, unspecified; M47.892 Other spondylosis, cervical region; S80.01XA Contusion of right knee, initial encounter; F17.210 Nicotine dependence, cigarettes, uncomplicated; F32.9 Major depressive disorder, single episode, unspecified; I65.23 Occlusion and stenosis of bilateral carotid arteries; Z79.82 Long term (current) use of aspirin; Z79.890 Hormone replacement therapy; Z79.899 Other long term (current) drug therapy; Z88.1 Allergy status to other antibiotic agents; Z86.79 Personal history of other diseases of the circulatory system; W19.XXXA Unspecified fall, initial encounter
CPT/HCPCS: 36415; 70496; 70498; 71046; 80053; 80177; 83605; 83735; 83880; 84484; 85025; 85610; 85730; 87635; 93005; 93306; 93880; 95816; 96374; 99285

== ENCOUNTER → 2022-09-08 | Outpatient (CLI) | payer MEDICARE ==
--- NOTE | 2022-09-08 14:35 | BD ---
EXAMINATION TYPE: Axial Bone Density DATE OF EXAM: 09/08/2022 CLINICAL HISTORY: 82 years old Female. ICD-10 CODE: M81.0 AGE RELATED OSTEOPOROSIS Height: 63.5 Weight: 154.0 FRAX RISK QUESTIONS: Alcohol (3 or more units per day): no Family History (Parent hip fracture): no Glucocorticoids (More than 3mos): no (Ex: prednisone, prednisolone, methylprednisolone, dexamethasone, and hydrocortisone). History of Fracture in Adulthood: yes Secondary Osteoporosis: 1. Type 1 Diabetes: no 2. Hyperthyroidism: no 3. Menopause before 45: no 4. Malnutrition: no 5. Chronic liver disease: no Rheumatoid Arthritis: yes Current Tobacco Use: yes RISK FACTORS HISTORY OF: Spine Fracture: lumbar spine History of Wrist Fracture: left When: 10 years ago Surgery to Spine/Hip(right/left)/Wrist (right/left): no Family History of Osteoporosis: yes Diet low in dairy products/other sources of calcium: no Postmenopausal woman: yes Lost more than 2 inches in height since high school: yes MEDICATIONS: Additional History: EXAM MEASUREMENTS: Bone mineral densitometry was performed using the [employer] System. Bone mineral density about the R hip (g/cm2): 0.742 Bone mineral density about the L hip (g/cm2): 0.799 T Score values are as follows: -----R Neck: -2.0 -----L Neck: -1.7 -----R Total: -2.1 -----L Total: -1.7 Z Score values are as follows: -----R Neck: 0.1 -----L Neck: 0.4 -----R Total: -0.1 -----L Total: 0.4 Bone mineral density has: decreased -10.2 % since study of: 01.10.2018 Bone mineral density about the R Wrist (g/cm2): 0.363 T Score values are as follows: -----Dist. R+U: -3.9 -----Prox. R+U: -4.4 -----Radius total: -5.2 Z Score values are as follows: -----Dist. R+U: -1.0 -----Prox. R+U: -1.4 -----Radius total: -2.2 Bone mineral density : baseline FRAX%s: The graph provided illustrates a 30.1% chance for a major osteoporotic fx and a 13.9% chance for the hips probability for fx in 10 years time. IMPRESSION: Osteoporosis (T Score less than -2.5). There is increased fracture risk and therapy is usually indicated based on age. Re-Screen 1-2 years. NOTE: T-SCORE=SD OF THE YOUNG ADULT MEAN.
[2022-09-08 14:51] LABS: Basophils % (A) 1 %; Eosinophils # (A) 0.1 k/uL (0-0.7); Eosinophils % (A) 2 %; HCT 39.7 % (34.0-46.0); HGB 12.4 gm/dL (11.4-16.0); Hypochromasia Slight; Lymphocytes # (A) 1.1 k/uL (1.0-4.8); Lymphocytes % (A) 24 %; MCH 30.9 pg (25.0-35.0); MCHC 31.3 g/dL (31.0-37.0); MCV 98.7 fL (80.0-100.0); Mean Platelet Volume 8.1; Monocytes # (A) 0.5 k/uL (0-1.0); Monocytes % (A) 10 %; Neutrophils # (A) 2.9 k/uL (1.3-7.7); Neutrophils % (A) 61 %; Platelet Count 207 k/uL (150-450); RBC 4.02 m/uL (3.80-5.40); RDW 14.5 % (11.5-15.5); WBC 4.8 k/uL (3.8-10.6)
[2022-09-08 15:09] LABS: Calcium 9.2 mg/dL (8.4-10.2); Potassium 4.3 mmol/L (3.5-5.1)
[2022-09-08 16:04] LABS: C Reactive Protein 1.8 mg/dL (<1.0)
[2022-09-08 16:58] LABS: Erythrocyte Sedimentation Rate 39 mm/hr (0-20)
== END | disposition home or self-care (01) ==
LOC: RADBDWWP 13:11
PROVIDERS: ATTEND Internal Medicine Rheumatology
DX: M81.0 Age-related osteoporosis without current pathological fracture (principal); M06.89 Other specified rheumatoid arthritis, multiple sites; M85.89 Other specified disorders of bone density and structure, multiple sites
CPT/HCPCS: 77080; 80048; 84450; 84460; 85025; 85652; 86140

== ENCOUNTER → 2023-05-06 | Outpatient (CLI) | payer MEDICARE ==
--- NOTE | 2023-05-06 12:34 | XR ---
EXAMINATION TYPE: XR lumbosacral spine min 4V DATE OF EXAM: 05/06/2023 12:15 PM CLINICAL INDICATION:Female, 82 years old with history of [id number] IDD; COMPARISON: 12/15/2017 TECHNIQUE: XR lumbosacral spine min 4V - Frontal, lateral , bilateral oblique and coned in L5-S1 late ral views of the spine. FINDINGS: No evidence of any acute osseous pathology. Compression deformities at L1 and L2 are noted anterolisthesis at L3-L4. There is normal alignment of the lumbar vertebral bodies. Scattered disc sp jefferson narrowing. Multilevel marginal osteophyte formation throughout the visualized spine. There is fac et joint arthropathy throughout the spine. Scattered at least mild neural foraminal stenosis. Worse a t L5-S1 Severe atherosclerosis of the arterial vasculature. IMPRESSION: 1. Compression deformities of L1 and L2 and to a lesser extent L3-L4. Consider evaluation with MRI to look for bony edema for acute compression fractures. 2. Moderate multilevel disc degeneration.
== END | disposition home or self-care (01) ==
LOC: RADXRYALE 11:59
PROVIDERS: ATTEND Physician Assistant Medical
DX: M48.56XA Collapsed vertebra, not elsewhere classified, lumbar region, initial encounter for fracture (principal); M51.36 Other intervertebral disc degeneration, lumbar region
CPT/HCPCS: 72110

== ENCOUNTER → 2023-06-03 | Outpatient (CLI) | payer MEDICARE ==
--- NOTE | 2023-06-06 12:36 | MR ---
EXAMINATION TYPE: MR lumbar spine wo con DATE OF EXAM: 06/03/2023 COMPARISON: None HISTORY: Lower back pain with BLE radiculopathy. TECHNIQUE: Multiplanar, multisequence images of the lumbar spine were acquired without IV contrast. There appears to be a transitional vertebral segment with partial lumbarization of S1 with a rudiment rai S1-S2 disc. L1-L2: [id number] disc desiccation with posterior disc bulge mild effacement of ventral thecal sac. No evidence for herniation or central stenosis. Moderate chronic loss of height of the L1 and L2 vertebral segments. L2-L3: [id number] disc desiccation with posterior disc bulge mild effacement of ventral thecal sac. No evidence for herniation or central stenosis. Moderate chronic loss of height of the L2 verteb ral segment. L3-L4: Moderate disc desiccation posterior disc bulge. Mild effacement of ventral thecal sac. No alonso iation or central stenosis. No foraminal encroachment. Superior endplate Schmorl node at L4. L4-L5: Moderate disc desiccation posterior disc bulge. Mild effacement of ventral thecal sac. No alonso iation or central stenosis. No foraminal encroachment. Superior endplate Schmorl node at L4. L5-S1: Moderate disc desiccation posterior disc bulge. Mild effacement of ventral thecal sac. No alonso iation or central stenosis. No foraminal encroachment. Loss of height noted. Lumbar segments are intact. No paraspinal masses are identified. Conus medullaris has a normal appe arance. IMPRESSION: 1. Multilevel degenerative disc disease and disc bulging without herniation or central stenosis. Manager Financial Reporting lilian loss of height of several vertebral segments as noted.
== END | disposition home or self-care (01) ==
LOC: RADMRIMAIN 16:09
PROVIDERS: ATTEND Family Medicine
DX: M51.16 Intervertebral disc disorders with radiculopathy, lumbar region (principal); S32.000A Wedge compression fracture of unspecified lumbar vertebra, initial encounter for closed fracture; R93.7 Abnormal findings on diagnostic imaging of other parts of musculoskeletal system; X58.XXXA Exposure to other specified factors, initial encounter
CPT/HCPCS: 72148

== ENCOUNTER → 2023-08-22 | Outpatient (CLI) | payer MEDICARE ==
--- NOTE | 2023-08-25 15:21 | CA ---
Transthoracic Echo Report Name: Anne Hodgson Age: 83 Gender: F : 1940 Exam Date: 08/22/2023 16:00 Exam Location: [facility] Ht (in): 63 Wt (lb): 144 Ordering Physician: Mika Phillips DO Attending/Referring Phys: Ofelia George PAC Inspector Outside [employer] Natalie Brown RDCS Procedure CPT: Indications: R01.1 cardiac murmur Cardiac Hx: Technical Quality: Fair Contrast 1: Total Dose (mL): Contrast 2: Total Dose (mL): MEASUREMENTS (Male / Female) Normal Values 2D ECHO LV Diastolic Diameter PLAX 3.4 cm 4.2 - 5.9 / 3.9 - 5.3 cm LV Systolic Diameter PLAX 2.0 cm IVS Diastolic Thickness 1.3 cm 0.6 - 1.0 / 0.6 - 0.9 cm LVPW Diastolic Thickness 1.3 cm 0.6 - 1.0 / 0.6 - 0.9 cm LV Relative Wall Thickness 0.8 RV Internal Dim ED PLAX 3.5 cm LVOT Diameter 1.5 cm LA Volume 37.2 cm??? 18 - 58 / 22 - 52 cm??? LA Volume Index 21.7 cm???/m??? 16 - 28 cm???/m??? M-MODE Aortic Root Diameter MM 3.0 cm LA Systolic Diameter MM 3.9 cm LA Ao Ratio MM 1.3 AV Cusp Separation MM 1.3 cm DOPPLER AV Peak Velocity 157.9 cm/s AV Peak Gradient 10.0 mmHg AV Mean Velocity 104.9 cm/s AV Mean Gradient 5.2 mmHg AV Velocity Time Integral 34.2 cm LVOT Peak Velocity 157.3 cm/s LVOT Peak Gradient 9.9 mmHg LVOT Velocity Time Integral 35.4 cm LVOT Stroke Volume 65.6 cm??? LVOT Stroke Volume Index 39.0 ml/m??? LVOT Cardiac Index 2599.2 cm???/min???m??? AV Area Cont Eq vti 1.9 cm??? AV Area Cont Eq pk 1.8 cm??? MV Area PHT 2.7 cm??? Mitral E Point Velocity 67.4 cm/s Mitral A Point Velocity 110.9 cm/s Mitral E to A Ratio 0.6 MV Deceleration Time 280.8 ms MV E' Velocity 6.4 cm/s Mitral E to MV E' Ratio 10.5 TR Peak Velocity 232.2 cm/s TR Peak Gradient 21.6 mmHg Right Ventricular Systolic Press 26.4 mmHg FINDINGS Left Ventricle Mildly increased left ventricular wall thickness. Left ventricular cavity size normal. Normal left ventricular systolic function with no obvious regional wall motion abnormalities. Left ventricular ejection fraction is estimated at 55- 60%. Grade 1 diastolic dysfunction. Right Ventricle Normal right ventricular size and function. Right ventricular systolic pressure within normal limits. Right Atrium Normal right atrial size. Left Atrium Normal left atrial size. Mitral Valve Structurally normal mitral valve. Mitral valve thickened. Mild mitral annular calcification. Mild mitral regurgitation. Aortic Valve Trileaflet aortic valve. No aortic valve stenosis or regurgitation. Tricuspid Valve Tricuspid valve not well visualized. Mild tricuspid regurgitation. Pulmonic Valve Structurally normal pulmonic valve. Pericardium No pericardial effusion. Aorta Normal size aortic root and proximal ascending aorta. CONCLUSIONS Normal LV size and function Mild mitral annular calcification with mild regurgitation Previewed by: Dr. Jay Jay Flowers MD (Electronically Signed) Final Date: 25 August 2023 15:20
== END | disposition home or self-care (01) ==
LOC: RADECHMAIN 15:59
PROVIDERS: ATTEND Family Medicine
DX: I34.81 Nonrheumatic mitral (valve) annulus calcification (principal); R01.1 Cardiac murmur, unspecified
CPT/HCPCS: 93306

== ENCOUNTER → 2023-10-25 | Outpatient (CLI) | payer MEDICARE ==
[2023-10-25 12:15] LABS: African American GFR (CKD) 52 (>60 ml/min/1.73 sqM); Blood Urea Nitrogen 23 mg/dL (7-17); Non-African American GFR(CKD) 45 (>60 ml/min/1.73 sqM)
--- NOTE | 2023-10-25 13:13 | CT ---
EXAMINATION TYPE: CT angio neck DATE OF EXAM: 10/25/2023 COMPARISON: July 27, 2019 HISTORY: carotid stenosis. CT DLP: 242.40 mGycm CONTRAST: CTA cervical carotids is performed and with IV Contrast, patient injected with 78ml mL of Isovue 370. Contrast CTA of the cervical carotids was performed 3-D reconstruction imaging obtained at a separate workstation. Right carotid system: Irregular plaque throughout the right common carotid artery redemonstrated apple checker lilian dissection. There is progression of stenosis mid right common carotid artery to approximately 95% . There is irregular plaque also noted at the right carotid bulb and proximal right ICA with stenosis noted of between 70 and 75%. Small plaque ulcerations noted. Right external carotid artery is patent . Left carotid system: Again noted is significant stenosis at the origin of the left common carotid art brandon estimated at 85%. Irregular plaque throughout the left common carotid artery. Additional stenosis of 70% mid to distal left common carotid artery. Predominantly calcified plaque at the carotid bulb resulting in stenosis of 60%. The remainder of the left ICA without additional hemodynamically signif icant stenosis. IMPRESSION: 1. Progression of stenosis mid right common carotid artery to approximately 95%. 2. 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 3. 70-75% right proximal ICA stenosis. 4. Significant stenosis at the origin of the left common carotid artery of 85%. See above. NASCET criteria was used in interpretation of this exam?
== END | disposition home or self-care (01) ==
LOC: RADCTMAIN 11:31
PROVIDERS: ATTEND Family Medicine
DX: I65.23 Occlusion and stenosis of bilateral carotid arteries (principal); I77.1 Stricture of artery; R93.89 Abnormal findings on diagnostic imaging of other specified body structures
CPT/HCPCS: 82565; 84520; 70498; 36415; Q9967

== ENCOUNTER 2023-11-11 11:46 | Emergency (ER) | payer MEDICARE ==
[2023-11-11 11:52] VITALS: RESP 18; TEMP 99.1
[2023-11-11 12:55] LABS: Basophils % (A) 0 %; Eosinophils % (A) 0 %; HCT 39.3 % (34.0-46.0); HGB 12.6 gm/dL (11.4-16.0); Lymphocytes # (A) 0.7 k/uL (1.0-4.8); Lymphocytes % (A) 4 %; MCH 30.2 pg (25.0-35.0); MCHC 32.1 g/dL (31.0-37.0); MCV 93.9 fL (80.0-100.0); Mean Platelet Volume 8.7; Monocytes # (A) 1.3 k/uL (0-1.0); Monocytes % (A) 8 %; Neutrophils # (A) 13.5 k/uL (1.3-7.7); Neutrophils % (A) 86 %; Platelet Count 140 k/uL (150-450); RBC 4.19 m/uL (3.80-5.40); RDW 13.7 % (11.5-15.5); WBC 15.6 k/uL (3.8-10.6)
--- NOTE | 2023-11-11 12:56 | ED ---
General Adult HPI - General Chief complaint: Weakness Stated complaint: Weakness Time Seen by Provider: 11/11/23 12:01 Source: patient, EMS, RN notes reviewed, old records reviewed Mode of arrival: EMS Limitations: no limitations - History of Present Illness Initial comments: 83-year-old female presenting with several complaints, complaints of generalized weakness and constipation stating that she has not had a bowel movement in the past 3 days. No vomiting fever. No chest pain. She does complain of low back pain and right hip pain. Denies injury. - Related Data Home Medications Medication Instructions Recorded Confirmed levETIRAcetam [Keppra] 750 mg PO BID 08/27/18 01/23/21 lisinopriL [Zestril] 2.5 mg PO DAILY 08/27/18 01/23/21 Lactobacillus Acidophilus 1 cap PO DAILY 01/23/21 01/23/21 [Acidophilus Probiotic] Levothyroxine Sodium [Synthroid] 137 mcg PO DAILY 01/23/21 01/23/21 Omeprazole 40 mg PO DAILY 01/23/21 01/23/21 amLODIPine [Norvasc] 2.5 mg PO DAILY 01/23/21 01/23/21 Previous Rx's Medication Instructions Recorded Aspirin 81 mg PO DAILY #30 tab 01/26/21 Atorvastatin [Lipitor] 40 mg PO HS #30 tab 01/26/21 Docusate [Colace] 100 mg PO BID #60 capsule 11/11/23 polyethylene glycoL 3350 [Miralax] 17 gm PO DAILY #527 gm 11/11/23 traMADol HCL 50 mg PO BID PRN 6 Days #12 tab 11/11/23 Allergies Allergy/AdvReac Type Severity Reaction Status Date / Time cephalexin [From Keflex] Allergy Itching Verified 01/23/21 19:50 Review of Systems ROS Statement: Those systems with pertinent positive or pertinent negative responses have been documented in the HPI. ROS Other: All systems not noted in ROS Statement are negative. Past Medical History Past Medical History: Rheumatoid Arthritis (RA), Seizure Disorder Additional Past Medical History / Comment(s): arthritis, kidney stones, gallbladder stones, carotid artery blockage, Chronic back pain with crushed vertebraes History of Any Multi-Drug Resistant Organisms: None Reported Additional Past Surgical History / Comment(s): endarctectomy Past Anesthesia/Blood Transfusion Reactions: No Reported Reaction Past Psychological History: Depression Smoking Status: Current every day smoker Past Alcohol Use History: Occasional Past Drug Use History: None Reported - Past Family History Family Family Medical History: Coronary Artery Disease (CAD) General Exam Limitations: no limitations General appearance: alert, in no apparent distress Head exam: Present: atraumatic, normocephalic Eye exam: Present: normal appearance, PERRL ENT exam: Present: normal exam Neck exam: Present: normal inspection. Absent: tenderness, meningismus Respiratory exam: Present: normal lung sounds bilaterally. Absent: respiratory distress Cardiovascular Exam: Present: regular rate, normal rhythm GI/Abdominal exam: Present: soft. Absent: distended, tenderness, guarding, re bound Extremities exam: Present: tenderness (Pain with range of motion to the right hip) Psychiatric exam: Present: normal affect, normal mood Skin exam: Present: warm, dry, intact. Absent: cyanosis, diaphoretic Course Vital Signs 11/11/23 11/11/23 11/11/23 11:47 14:52 16:05 Temperature 99.1 F Pulse Rate 62 64 62 Respiratory 18 18 18 Rate Blood Pressure 137/91 133/72 108/62 O2 Sat by Pulse 99 96 97 Oximetry Medical Decision Making - Medical Decision Making Was pt. sent in by a medical professional or institution (, PA, REMOTE SENSING SCIENTIST, urgent care, hospital, or custodial...) When possible be specific @ -No Did you speak to anyone other than the patient for history (EMS, parent, family, police, friend...)? What history was obtained from this source @ -No Did you review nursing and triage notes (agree or disagree)? Why? @ -I reviewed and agree with nursing and triage notes Were old charts reviewed (outside hosp., previous admission, EMS record, old EKG, old radiological studies, urgent care reports/EKG's, custodial records)? Report findings @ -No old charts were reviewed Differential Diagnosis (chest pain, altered mental status, abdominal pain women, abdominal pain men, vaginal bleeding, weakness, fever, dyspnea, syncope, headache, dizziness, GI bleed, back pain, seizure, CVA, palpatations, mental health, musculoskeletal)? @ -Not applicable EKG interpreted by me (3pts min.). @Sinus rhythm rate of 64, ID interval 141, QRS duration 78, QTc [address] segment elevation X-rays interpreted by me (1pt min.). @ -X-ray of the lumbar spine and right hip and pelvis are showing degenerative change without acute process. KUB shows moderate stool burden. CT interpreted by me (1pt min.). @ -None done U/S interpreted by me (1pt. min.). @ -None done What testing was considered but not performed or refused? (CT, X-rays, U/S, labs)? Why? @ -None What meds were considered but not given or refused? Why? @ -None Did you discuss the management of the patient with other professionals (professionals i.e. , PA, REMOTE SENSING SCIENTIST, lab, RT, psych nurse, social organization professor, tour agent, teacher, budget officer, disease case manager)? Give summary @ -No Was smoking cessation discussed for >3mins.? @ -No Was critical care preformed (if so, how long)? @ -No Were there social determinants of health that impacted care today? How? (Homelessness, low income, unemployed, alcoholism, drug addiction, transporta tion, low edu. Level, literacy, decrease access to med. care, care home, rehab)? @ -No Was there de-escalation of care discussed even if they declined (Discuss DNR or withdrawal of care, Hospice)? DNR status @ -No What co-morbidities impacted this encounter? (DM, HTN, Smoking, COPD, CAD, Cancer, CVA, ARF, Chemo, Hep., AIDS, mental health diagnosis, sleep apnea, morbid obesity)? @ -Rheumatoid arthritis, debility Was patient admitted / discharged? Hospital course, mention meds given and route, prescriptions, significant lab abnormalities, going to OR and other pertinent info. @ -2-year-old female with complaint of constipation, hip and back pain. Patient well-appearing with stable vitals. She has no abdominal tenderness on exam. Patient does also complain of generalized weakness. X-rays are performed of the abdomen, right hip and lumbar spine without acute process. Patient has normal laboratory studies with the exception of a leukocytosis of uncertain etiology. No fever or other infectious complaints. Patient offered observation given the weakness and decreased mobility. Patient is accompanied by her daughter at this time felt that the patient can go home with treatment for her constipation and her pain. I did prescribe Colace, MiraLAX and tramadol. Patient can return to the emergency department with any worsening or changing symptoms. Undiagnosed new problem with uncertain prognosis? @ -No Drug Therapy requiring intensive monitoring for toxicity (Heparin, Nitro, Insu otto, Cardizem)? @ -No Were any procedures done? @ -No Diagnosis/symptom? @ -Arthritis, constipation, weakness Acute, or Chronic, or Acute on Chronic? @ -[Acute on chronic Uncomplicated (without systemic symptoms) or Complicated (systemic symptoms)? @ -Default Side effects of treatment? @ -No Exacerbation, Progression, or Severe Exacerbation? @ -No Poses a threat to life or bodily function? How? (Chest pain, USA, [place], pneumonia, PE, COPD, DKA, ARF, appy, cholecystitis, CVA, Diverticulitis, Homicidal, Suicidal, threat to staff... and all critical care pts) @ -No - Lab Data Result diagrams: 11/11/23 12:33 11/11/23 12:33 Lab Results 11/11/23 11/11/23 11/11/23 Range/Units 12:33 12:33 12:33 WBC 15.6 H (3.8-10.6) k/uL RBC 4.19 (3.80-5.40) m/uL Hgb 12.6 (11.4-16.0) gm/dL Hct 39.3 (34.0-46.0) % MCV 93.9 (80.0-100.0) fL MCH 30.2 (25.0-35.0) pg MCHC 32.1 (31.0-37.0) g/dL RDW 13.7 (11.5-15.5) % Plt Count 140 L (150-450) k/uL MPV 8.7 Neutrophils % 86 % Lymphocytes % 4 % Monocytes % 8 % Eosinophils % 0 % Basophils % 0 % Neutrophils # 13.5 H (1.3-7.7) k/uL Lymphocytes # 0.7 L (1.0-4.8) k/uL Monocytes # 1.3 H (0-1.0) k/uL Eosinophils # 0.0 (0-0.7) k/uL Basophils # 0.0 (0-0.2) k/uL PT 10.7 (10.0-12.5) sec INR 1.0 (<1.2) APTT 27.0 (22.0-30.0) sec Sodium 135 L (137-145) mmol/L Potassium 3.6 (3.5-5.1) mmol/L Chloride 107 (98-107) mmol/L Carbon Dioxide 22 (22-30) mmol/L Anion Gap 6 mmol/L BUN 25 H (7-17) mg/dL Creatinine 1.20 H (0.52-1.04) mg/dL Est GFR (CKD-EPI)AfAm 48 (>60 ml/min/1.73 sqM) Est GFR (CKD-EPI)NonAf 42 (>60 ml/min/1.73 sqM) Glucose 139 H (74-99) mg/dL Plasma Lactic Acid Rosas (0.7-2.0) mmol/L Calcium 9.1 (8.4-10.2) mg/dL Magnesium 2.0 (1.6-2.3) mg/dL Total Bilirubin 0.8 (0.2-1.3) mg/dL AST 27 (14-36) U/L ALT 12 (4-34) U/L Alkaline Phosphatase 86 (38-126) U/L Troponin I (0.000-0.034) ng/mL Total Protein 5.9 L (6.3-8.2) g/dL Albumin 3.3 L (3.5-5.0) g/dL Urine Color Urine Appearance (Clear) Urine pH (5.0-8.0) Ur Specific [place] (1.001-1.035) Urine Protein (Negative) Urine Glucose (UA) (Negative) Urine Ketones (Negative) Urine Blood (Negative) Urine Nitrite (Negative) Urine Bilirubin (Negative) Urine Urobilinogen (<2.0) mg/dL Ur Leukocyte Esterase (Negative) Urine RBC (0-5) /hpf Urine WBC (0-5) /hpf Ur Squamous Epith Cells (0-4) /hpf Urine Bacteria (None) /hpf Urine Mucus (None) /hpf 11/11/23 11/11/23 11/11/23 Range/Units 12:33 12:33 15:37 WBC (3.8-10.6) k/uL RBC (3.80-5.40) m/uL Hgb (11.4-16.0) gm/dL Hct (34.0-46.0) % MCV (80.0-100.0) fL MCH (25.0-35.0) pg MCHC (31.0-37.0) g/dL RDW (11.5-15.5) % Plt Count (150-450) k/uL MPV Neutrophils % % Lymphocytes % % Monocytes % % Eosinophils % % Basophils % % Neutrophils # (1.3-7.7) k/uL Lymphocytes # (1.0-4.8) k/uL Monocytes # (0-1.0) k/uL Eosinophils # (0-0.7) k/uL Basophils # (0-0.2) k/uL PT (10.0-12.5) sec INR (<1.2) APTT (22.0-30.0) sec Sodium (137-145) mmol/L Potassium (3.5-5.1) mmol/L Chloride (98-107) mmol/L Carbon Dioxide (22-30) mmol/L Anion Gap mmol/L BUN (7-17) mg/dL Creatinine (0.52-1.04) mg/dL Est GFR (CKD-EPI)AfAm (>60 ml/min/1.73 sqM) Est GFR (CKD-EPI)NonAf (>60 ml/min/1.73 sqM) Glucose (74-99) mg/dL Plasma Lactic Acid Rosas 1.2 (0.7-2.0) mmol/L Calcium (8.4-10.2) mg/dL Magnesium (1.6-2.3) mg/dL Total Bilirubin (0.2-1.3) mg/dL AST (14-36) U/L ALT (4-34) U/L Alkaline Phosphatase (38-126) U/L Troponin I 0.016 (0.000-0.034) ng/mL Total Protein (6.3-8.2) g/dL Albumin (3.5-5.0) g/dL Urine Color Light Yellow Urine Appearance Clear (Clear) Urine pH 7.0 (5.0-8.0) Ur Specific [place] 1.016 (1.001-1.035) Urine Protein 3+ H (Negative) Urine Glucose (UA) Negative (Negative) Urine Ketones Negative (Negative) Urine Blood Small H (Negative) Urine Nitrite Negative (Negative) Urine Bilirubin Negative (Negative) Urine Urobilinogen 4.0 (<2.0) mg/dL Ur Leukocyte Esterase Negative (Negative) Urine RBC 3 (0-5) /hpf Urine WBC 2 (0-5) /hpf Ur Squamous Epith Cells 1 (0-4) /hpf Urine Bacteria Rare H (None) /hpf Urine Mucus Rare H (None) /hpf Disposition Clinical Impression: Arthritis, Constipation Disposition: HOME SELF-CARE Condition: Fair Instructions (If sedation given, give patient instructions): Constipation (ED), High Fiber Diet (ED), Rheumatoid Arthritis (ED) Prescriptions: Docusate [Colace] 100 mg PO BID #60 capsule polyethylene glycoL 3350 [Miralax] 17 gm PO DAILY #527 gm traMADol HCL 50 mg PO BID PRN 6 Days #12 tab PRN Reason: Pain Is patient prescribed a controlled substance at d/c from ED?: No Referrals: Mika Phillips DO [Primary Care Provider] - 1-2 days Time of Disposition: 16:23
[2023-11-11 13:06] LABS: Prothrombin Time 10.7 sec (10.0-12.5)
[2023-11-11 13:12] LABS: ALT 12 U/L (4-34); AST 27 U/L (14-36); African American GFR (CKD) 48 (>60 ml/min/1.73 sqM); Albumin 3.3 g/dL (3.5-5.0); Alkaline Phosphatase 86 U/L (38-126); Anion Gap 6 mmol/L; Blood Urea Nitrogen 25 mg/dL (7-17); Calcium 9.1 mg/dL (8.4-10.2); Carbon Dioxide 22 mmol/L (22-30); Chloride 107 mmol/L (98-107); Glucose 139 mg/dL (74-99); Non-African American GFR(CKD) 42 (>60 ml/min/1.73 sqM); Potassium 3.6 mmol/L (3.5-5.1); Sodium 135 mmol/L (137-145); Total Bilirubin 0.8 mg/dL (0.2-1.3); Total Protein 5.9 g/dL (6.3-8.2)
--- NOTE | 2023-11-11 14:00 | XR ---
EXAMINATION TYPE: XR KUB DATE OF EXAM: 11/11/2023 1:53 PM CLINICAL INDICATION:Female, 83 years old with history of constipation; COMPARISON: None. TECHNIQUE: One radiographic view of the abdomen was obtained. FINDINGS: Moderate amount stool throughout the colon. The bowel gas pattern is nonspecific without di lated loops of small or large bowel. . Fecal material and gas are demonstrated throughout the colon a nd rectum. There is no evidence for organomegaly or pneumoperitoneum. The osseous structures are intact. No ab normal calcifications are present. Multilevel degeneration changes throughout spine. IMPRESSION: Moderate stool burden throughout the colon.
--- NOTE | 2023-11-11 14:22 | XR ---
EXAMINATION TYPE: XR Hip RT and AP Pelvis DATE OF EXAM: 11/11/2023 1:53 PM CLINICAL INDICATION:Female, 83 years old with history of pain; [facility] COMPARISON: None. TECHNIQUE: XR Hip RT and AP Pelvis; hip was examined in the frontal and lateral projections and a AP pelvis. FINDINGS: No evidence for acute process, joint dislocation or significant soft tissue swelling. Osteo phyte formation of the superior acetabulum of the hip. There is moderate to severe right and mild to moderate joint space narrowing. Atherosclerosis of the arterial vasculature. IMPRESSION: 1. No evidence for acute process. 2. 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
--- NOTE | 2023-11-11 14:24 | XR ---
EXAMINATION TYPE: XR lumbar spine 2 or 3V DATE OF EXAM: 11/11/2023 1:53 PM CLINICAL INDICATION:Female, 83 years old with history of pain; [facility] COMPARISON: 05/05/2023 TECHNIQUE: XR lumbar spine 2 or 3V - Frontal, lateral and coned in L5-S1 lateral views of the spine. FINDINGS: No evidence of any acute osseous pathology vertebral body loss at L1-L2 and L4 similar to p rior given differences in projection.. Scattered disc space narrowing. Multilevel marginal osteophyte formation throughout the visualized spine. There is facet joint arthropathy throughout the spine. Mo derate L5-S1 neural foraminal stenosis. IMPRESSION: 1. Similar wedge compression deformities of L1 and L2 and L4 when comparing to 05/06/2023. No obvious a cute new fracture. 2. Moderate to severe multilevel disc degeneration.
[2023-11-11] MEDS: MORPHINE SULFATE 4 MG/ML SYRINGE IVP STA (14:43)
[2023-11-11] MEDS: SODIUM CHLORIDE 0.9% 500 ML 500 ML IV ONE (14:45)
[2023-11-11 16:02] LABS: Appearance,Urine Clear (Clear); Bacteria,Urine Rare /hpf; Bilirubin,Urine Negative (Negative); Blood,Urine Small (Negative); Color,Urine Light Yellow; Glucose,Urine (UA) Negative (Negative); Ketones,Urine Negative (Negative); Leukocyte Esterase,Urine Negative (Negative); Mucus,Urine Rare /hpf; Nitrite,Urine Negative (Negative); Protein,Urine 3+ (Negative); RBC,Urine 3 /hpf (0-5); Specific Gravity,Urine 1.016 (1.001-1.035); Squamous Epithelial Cell,Urine 1 /hpf (0-4); WBC,Urine 2 /hpf (0-5)
[2023-11-11 16:56] VITALS: BP 110/99; PULSE 78
== END 2023-11-11 16:56 | disposition home or self-care (01) ==
LOC: EC 11:46
DX: K59.00 Constipation, unspecified (principal); M06.9 Rheumatoid arthritis, unspecified; R53.81 Other malaise; F17.200 Nicotine dependence, unspecified, uncomplicated; Z88.1 Allergy status to other antibiotic agents
CPT/HCPCS: 36415; 93005; 80053; 83605; 83735; 84484; 85025; 85610; 85730; 81001; 72100; 73502; 74018; 99285; 96374; J2270

== ENCOUNTER 2024-02-08 10:39 | Emergency (ER) | payer MEDICARE ==
[2024-02-08 11:23] VITALS: TEMP 97.6
--- NOTE | 2024-02-08 11:26 | ED ---
Upper Extremity HPI - General Chief Complaint: Extremity Injury, Upper Stated Complaint: L arm/hand pain Source: patient, RN notes reviewed Mode of arrival: ambulatory Limitations: no limitations - History of Present Illness Initial Comments: This is a 83-year-old female presenting with left upper extremity pain upon waking at 4 AM this morning. Patient states pain was 10 out of 10 upon waking but is now 3 out of 10 with the use of only aspirin for pain control. Patient denies recent trauma or known cause for some pain upon waking. Patient states pain was diffuse from left elbow to left fingers but is now localized from the left wrist to the left fingers only. Patient states pain is worse with movement. Patient endorses history of bilateral manual osteoarthritis. Patient denies chest pain, trouble breathing, dizziness, sweating, pallor. MD Complaint: Injury to:: left, arm, elbow, wrist, hand, finger Onset/Timin -: hour(s) Time: 04:00 - Related Data Home Medications Medication Instructions Recorded Confirmed levETIRAcetam [Keppra] 750 mg PO BID 08/27/18 01/23/21 lisinopriL [Zestril] 2.5 mg PO DAILY 08/27/18 01/23/21 Lactobacillus Acidophilus 1 cap PO DAILY 01/23/21 01/23/21 [Acidophilus Probiotic] Levothyroxine Sodium [Synthroid] 137 mcg PO DAILY 01/23/21 01/23/21 Omeprazole 40 mg PO DAILY 01/23/21 01/23/21 amLODIPine [Norvasc] 2.5 mg PO DAILY 01/23/21 01/23/21 Previous Rx's Medication Instructions Recorded Aspirin 81 mg PO DAILY #30 tab 01/26/21 Atorvastatin [Lipitor] 40 mg PO HS #30 tab 01/26/21 Docusate [Colace] 100 mg PO BID #60 capsule 11/11/23 polyethylene glycoL 3350 [Miralax] 17 gm PO DAILY #527 gm 11/11/23 traMADol HCL 50 mg PO BID PRN 6 Days #12 tab 11/11/23 Allergies Allergy/AdvReac Type Severity Reaction Status Date / Time cephalexin [From Keflex] Allergy Itching Verified 02/08/24 10:48 Review of Systems ROS Statement: Those systems with pertinent positive or pertinent negative responses have been documented in the HPI. ROS Other: All systems not noted in ROS Statement are negative. Past Medical History Past Medical History: Rheumatoid Arthritis (RA), Seizure Disorder Additional Past Medical History / Comment(s): arthritis, kidney stones, gallbladder stones, carotid artery blockage, Chronic back pain with crushed vertebraes History of Any Multi-Drug Resistant Organisms: None Reported Additional Past Surgical History / Comment(s): endarctectomy Past Anesthesia/Blood Transfusion Reactions: No Reported Reaction Past Psychological History: Depression Smoking Status: Current every day smoker Past Alcohol Use History: Occasional Past Drug Use History: None Reported - Past Family History Family Family Medical History: Coronary Artery Disease (CAD) General Exam Limitations: no limitations General appearance: alert, in no apparent distress Head exam: Present: atraumatic, normocephalic, normal inspection Eye exam: Present: normal appearance, PERRL, EOMI. Absent: scleral icterus, conjunctival injection, periorbital swelling ENT exam: Present: normal exam, mucous membranes moist Neck exam: Present: normal inspection. Absent: tenderness, meningismus, lymphadenopathy Respiratory exam: Present: normal lung sounds bilaterally. Absent: respiratory distress, wheezes, rales, rhonchi, stridor Cardiovascular Exam: Present: regular rate, normal rhythm, normal heart sounds. Absent: systolic murmur, diastolic murmur, rubs, gallop, clicks GI/Abdominal exam: Present: soft, normal bowel sounds. Absent: distended, tenderness, guarding, rebound, rigid Extremities exam: Present: full ROM, tenderness (Positive left dorsal ulnar wrist tenderness without obvious crepitus or deformity. Positive medial phalange E tenderness of third and fourth digits without crepitus. Bilateral contractures of hands and fingers noted), normal capillary refill. Absent: pedal edema, joint swelling, calf tenderness Back exam: Present: normal inspection Neurological exam: Present: alert, oriented X3, CN II-XII intact Psychiatric exam: Present: normal affect, normal mood Skin exam: Present: warm, dry, intact, normal color. Absent: rash Course Vital Signs 02/08/24 02/08/24 02/08/24 10:48 11:14 12:36 Temperature 97.5 F L 97.6 F Pulse Rate 59 L 56 L 52 L Respiratory 16 17 21 Rate Blood Pressure 182/76 162/60 155/53 O2 Sat by Pulse 97 99 100 Oximetry 02/08/24 13:50 Temperature 97.6 F Pulse Rate 54 L Respiratory 17 Rate Blood Pressure 156/59 O2 Sat by Pulse 100 Oximetry Medical Decision Making - Medical Decision Making Was pt. sent in by a medical professional or institution (CRISTÓBAL Nuñez, WILDLIFE CONSERVATION OFFICER, urgent care, hospital, or snf...) When possible be specific @ -No Did you speak to anyone other than the patient for history (EMS, parent, family, police, friend...)? What history was obtained from this source @ -No Did you review nursing and triage notes (agree or disagree)? Why? @ -I reviewed and agree with nursing and triage notes Were old charts reviewed (outside hosp., previous admission, EMS record, old EKG, old radiological studies, urgent care reports/EKG's, snf records)? Report findings @ -No old charts were reviewed Differential Diagnosis (chest pain, altered mental status, abdominal pain women, abdominal pain men, vaginal bleeding, weakness, fever, dyspnea, syncope, headache, dizziness, GI bleed, back pain, seizure, CVA, palpatations, mental health, musculoskeletal)? @ -Restrained, wrist contusion, hand contusion, osteoporotic fracture, osteoarthritis, carpal tunnel syndrome, de Quervain's tenosynovitis, tennis elbow, golfer's elbow EKG interpreted by me (3pts min.). @ -Not done X-rays interpreted by me (1pt min.). @ -Left arm, wrist and hand x-ray revealed no obvious fractures or dislocations. Radiologist noted osteopenia, osteoarthritis and indication of previously misaligned left wrist fracture. CT interpreted by me (1pt min.). @ -None done U/S interpreted by me (1pt. min.). @ -None done What testing was considered but not performed or refused? (CT, X-rays, U/S, labs)? Why? @ -None What meds were considered but not given or refused? Why? @ -None Did you discuss the management of the patient with other professionals (professionals i.e. CRISTÓBAL Nuñez, WILDLIFE CONSERVATION OFFICER, lab, RT, psych nurse, health social work professor, overhead door technician, teacher, armed security officer, supportive employment case manager)? Give summary @ -No Was smoking cessation discussed for >3mins.? @ -No Was critical care preformed (if so, how long)? @ -No Were there social determinants of health that impacted care today? How? (Homelessness, low income, unemployed, alcoholism, drug addiction, transportation, low edu. Level, literacy, decrease access to med. care, half-way, rehab)? @ -No Was there de-escalation of care discussed even if they declined (Discuss DNR or withdrawal of care, Hospice)? DNR status @ -No What co-morbidities impacted this encounter? (DM, HTN, Smoking, COPD, CAD, Cancer, CVA, ARF, Chemo, Hep., AIDS, mental health diagnosis, sleep apnea, mor bid obesity)? @ -None Was patient admitted / discharged? Hospital course, mention meds given and route, prescriptions, significant lab abnormalities, going to OR and other pertinent info. @ -Discharge. Radiograph of left elbow forearm wrist and hand revealed no obvious fracture or injury with patient noting improvement of reproducible symptoms since waking this morning. Undiagnosed new problem with uncertain prognosis? @ -No Drug Therapy requiring intensive monitoring for toxicity (Heparin, Nitro, Insulin, Cardizem)? @ -No Were any procedures done? @ -No Diagnosis/symptom? @ -Osteoarthritis, left wrist pain Acute, or Chronic, or Acute on Chronic? @ -Acute Uncomplicated (without systemic symptoms) or Complicated (systemic symptoms)? @ -Uncomplicated Side effects of treatment? @ -No Exacerbation, Progression, or Severe Exacerbation? @ -No Poses a threat to life or bodily function? How? (Chest pain, [place], [place], pneumonia, PE, COPD, DKA, ARF, appy, cholecystitis, CVA, Diverticulitis, Homicidal, Suicidal, threat to staff... and all critical care pts) @ -No Disposition Clinical Impression: Osteoarthritis Disposition: HOME SELF-CARE Condition: Good Instructions (If sedation given, give patient instructions): Osteoarthritis (ED) Is patient prescribed a controlled substance at d/c from ED?: No Referrals: Mika Phillips DO [Primary Care Provider] - 1-2 days Time of Disposition: 13:06
--- NOTE | 2024-02-08 11:54 | XR ---
EXAMINATION TYPE: XR elbow complete LT, XR hand complete 3 views 3 views LT, XR forearm 2 views LT DATE OF EXAM: 02/08/2024 COMPARISON: NONE HISTORY: 83-year-old female with pain FINDINGS: Elbow: No significant elbow joint effusion seen. No acute fracture, subluxation, dislocation. Forearm: No acute fracture of the more proximal to mid radius and ulna is identified. However, there are healed radially angulated and dorsally angulated fracture deformities at the dista l radial metaphysis and distal ulnar metadiaphysis. There is dorsal angulation at the wrist and secon jim positive ulnar variance with abutment of the ulnar head with the lunate bone. Osteopenia. Chroni c ununited fracture fragment of the ulnar styloid process measuring 6 mm. And colon Suspect some underlying degenerative joint space narrowing within the radiocarpal joint. Moderate deg enerative change first CMC and triscaphe joints. There is diffuse osteopenia. Ulnar deviation of the fingers at the level of the MCP joints with suggestion of some joint subluxations. Excessive bony ove rlap on the lateral view. No obvious acute fracture is seen. IMPRESSION: 1. Elbow: No acute osseous abnormality seen. 2. Forearm: No acute fracture identified of the more proximal or mid radius or ulna. 3. Hand: Chronic fracture deformities distal radial metaphysis and distal ulnar metadiaphysis. These fractures are healed in radial angulation and dorsal angulation. Secondary positive ulnar variance wi th ulnocarpal abutment and at least mild posttraumatic OA at the radiocarpal joint. Moderate OA at th e basal joint of the thumb. Osteopenia and ulnar deviation of the fingers and possibly some chronic M CP joint subluxations. No definite acute fracture seen. [facility], , 02/08/2024 11:52 AM
[2024-02-08 14:01] VITALS: BP 156/59; PULSE 54; RESP 17
== END 2024-02-08 14:01 | disposition home or self-care (01) ==
LOC: EC 10:39
CPT/HCPCS: 99283